=== PATIENT | female | born 1975 | race Two or more races ===

== ENCOUNTER → 2016-06-14 | Outpatient (CLI) | payer BC | END | disposition home or self-care (01) | LOC: LAB 12:46 | PROVIDERS: ATTEND Internal Medicine | DX: R30.0 Dysuria (principal) | CPT/HCPCS: 87086 ==

== ENCOUNTER → 2016-10-13 | Outpatient (CLI) | payer BC ==
[2016-10-13 10:15] LABS: Albumin 3.8 g/dL (3.4-5.0); BUN/Creatinine Ratio 15.9; Bilirubin, Total 0.5 mg/dL (0.2-1.0); Calcium 8.6 mg/dL (8.5-10.1); Potassium 3.8 mmol/L (3.5-5.1); Total Protein 8.1 g/dL (6.4-8.2)
[2016-10-13 10:22] LABS: Basophils # (auto) 0 uL; Basophils % (auto) 0.5 % (0.0-2.0); Eosinophils # (auto) 0.3 uL; Eosinophils % (auto) 2.7 % (0.0-7.0); Hematocrit 43.2 % (36.0-46.0); Hemoglobin 14.8 g/dL (12.2-16.2); Lymphocytes # (auto) 2.7 uL; Lymphocytes % (auto) 27.3 % (10.0-50.0); Mean Corpuscular Hgb Conc. 34.2 g/dL (32.0-36.0); Mean Corpuscular Volume 79.1 fL (80.0-100.0); Mean Platelet Volume 9.3 fL (7.4-10.4); Monocytes # (auto) 0.6 uL; Monocytes % (auto) 6.1 % (0.0-12.0); Neutrophils # (auto) 6.2 uL; Neutrophils % (auto) 63.4 % (37.0-80.0); Platelet Count (auto) 401 10^3/uL (140-450); Red Cell Distribution Width 14.5 % (11.6-16.0); White Blood Cell 9.8 10^3/uL (4.4-10.8)
== END | disposition home or self-care (01) ==
LOC: LAB 08:50
PROVIDERS: ATTEND Internal Medicine
DX: N92.0 Excessive and frequent menstruation with regular cycle (principal); Z68.30 Body mass index [BMI] 30.0-30.9, adult
CPT/HCPCS: 36415; 80053; 80061; 83001; 83002; 83036; 84439; 84443; 85025; 85652

== ENCOUNTER → 2016-12-28 | Outpatient (CLI) | payer BC ==
[2016-12-28 10:36] LABS: Basophils # (auto) 0.1 uL; Basophils % (auto) 0.7 % (0.0-2.0); CONDITION Y; DEFINITIVE SEE PRINTOUT; Eosinophils # (auto) 0.3 uL; Eosinophils % (auto) 2.5 % (0.0-7.0); Hematocrit 41.7 % (36.0-46.0); Lymphocytes # (auto) 2.6 uL; Lymphocytes % (auto) 24.1 % (10.0-50.0); Mean Corpuscular Hemoglobin 26.8 pg (28.0-32.0); Mean Corpuscular Hgb Conc. 33.5 g/dL (32.0-36.0); Mean Corpuscular Volume 79.9 fL (80.0-100.0); Mean Platelet Volume 9.1 fL (7.4-10.4); Monocytes # (auto) 0.5 uL; Monocytes % (auto) 4.8 % (0.0-12.0); Neutrophils # (auto) 7.4 uL; Neutrophils % (auto) 67.9 % (37.0-80.0); Platelet Count (auto) 428 10^3/uL (140-450); Red Cell Distribution Width 13.7 % (11.6-16.0)
[2016-12-28 10:46] LABS: BUN/Creatinine Ratio 13.4; Calcium 8.4 mg/dL (8.5-10.1); Potassium 4.1 mmol/L (3.5-5.1)
== END | disposition home or self-care (01) ==
LOC: LAB 07:56
PROVIDERS: ATTEND Internal Medicine
DX: Z00.01 Encounter for general adult medical examination with abnormal findings (principal); R79.89 Other specified abnormal findings of blood chemistry
CPT/HCPCS: 36415; 80048; 85025

== ENCOUNTER → 2017-04-03 | Outpatient (CLI) | payer BC ==
[2017-04-03 15:29] LABS: Basophils # (auto) 0.1 uL; Basophils % (auto) 0.8 % (0.0-2.0); Eosinophils # (auto) 0.3 uL; Hemoglobin 12.6 g/dL (12.2-16.2); Lymphocytes # (auto) 2.8 uL; Lymphocytes % (auto) 23.5 % (10.0-50.0); Monocytes # (auto) 0.5 uL; Monocytes % (auto) 4.5 % (0.0-12.0); White Blood Cell 11.7 10^3/uL (4.4-10.8)
[2017-04-03 15:31] LABS: Eosinophils % (auto) 2.7 % (0.0-7.0); Hematocrit 37.8 % (36.0-46.0); Mean Corpuscular Hemoglobin 26.8 pg (28.0-32.0); Mean Corpuscular Hgb Conc. 33.5 g/dL (32.0-36.0); Neutrophils % (auto) 68.5 % (37.0-80.0); Nucleated Red Blood Cells % 0.1 %; Platelet Count (auto) 386 10^3/uL (140-450); Red Blood Cells 4.72 10^6/uL (4.0-5.20); Red Cell Distribution Width 14.6 % (11.8-14.3)
[2017-04-03 16:21] LABS: Albumin 3.5 g/dL (3.4-5.0); BUN/Creatinine Ratio 12.3; Bilirubin, Total 0.2 mg/dL (0.2-1.0); Calcium 8.4 mg/dL (8.5-10.1); Potassium 3.5 mmol/L (3.5-5.1); Total Protein 7.6 g/dL (6.4-8.2)
[2017-04-03 16:31] LABS: Free T4 (Free Thyroxine) 0.96 ng/dL (0.89-1.76); Leuteinizing Hormone 2.7 IU/L
[2017-04-03 16:32] LABS: Follicle Stimulating Hormone 2.26 IU/L (SEE BELOW)
== END | disposition home or self-care (01) ==
LOC: LAB 08:01
PROVIDERS: ATTEND Obstetrics & Gynecology
DX: N93.9 Abnormal uterine and vaginal bleeding, unspecified (principal); R21 Rash and other nonspecific skin eruption; R51 Headache; Z79.899 Other long term (current) drug therapy
CPT/HCPCS: 36415; 80053; 82670; 83001; 83002; 84403; 84439; 84443; 85025

== ENCOUNTER 2017-04-28 07:15 | Emergency (ER) | payer BC ==
[~2017-04-28] VITALS: Ht 165.1 cm; Wt 108.9 kg
[2017-04-28 09:00] LABS: Basophils # (auto) 0 uL; Eosinophils # (auto) 0.2 uL; Lymphocytes # (auto) 1.9 uL; Monocytes # (auto) 0.4 uL; Neutrophils % (auto) 73.1 % (37.0-80.0); Platelet Count (auto) 416 10^3/uL (140-450); White Blood Cell 9.5 10^3/uL (4.4-10.8)
[2017-04-28 09:02] LABS: Basophils % (auto) 0.5 % (0.0-2.0); Eosinophils % (auto) 2.2 % (0.0-7.0); Hematocrit 39.4 % (36.0-46.0); Mean Corpuscular Hemoglobin 26.7 pg (28.0-32.0); Mean Corpuscular Hgb Conc. 33.2 g/dL (32.0-36.0); Mean Corpuscular Volume 80.6 fL (80.0-100.0); Mean Platelet Volume 8.3 fL (6.9-10.8); Monocytes % (auto) 4.2 % (0.0-12.0)
[2017-04-28 09:18] LABS: Albumin 3.3 g/dL (3.4-5.0); BUN/Creatinine Ratio 8.2; Calcium 8.2 mg/dL (8.5-10.1); Potassium 3.7 mmol/L (3.5-5.1)
[2017-04-28 09:21] LABS: Bilirubin, Total 0.6 mg/dL (0.2-1.0); Total Protein 7.5 g/dL (6.4-8.2)
[2017-04-28] MEDS ORDERED: SODIUM CHLORIDE 0.9% 1,000 ML IVB ONE (09:26)
[2017-04-28] MEDS ORDERED: METOCLOPRAMIDE HCL 5MG/ml INJ 2ml VIAL IV ONE (09:30)
[2017-04-28] MEDS ORDERED: NALBUPHINE HCL 10 MG/1ml INJECTION IV ONE (09:30)
[2017-04-28 09:57] LABS: Magnesium 2.4 mg/dL (1.6-2.6)
[2017-04-28 12:43] LABS: Urine Bilirubin Negative (Negative); Urine Blood 2+ /uL (Negative); Urine Color Yellow (Yellow); Urine Glucose Normal (Normal); Urine Granular Cast FEW /lpf (0); Urine Ketone Negative (Negative); Urine Mucus FEW (None Seen); Urine Nitrite Negative (Negative); Urine RBC 4 /hpf (0 - 4); Urine Squamous Epithelial Cell MOD /hpf (<5); Urine pH 6.5 (5.0-8.0)
[2017-04-28 13:12] VITALS: BP 121/84
[2017-04-28] MEDS ORDERED: cefTRIAXone 1GM/10ml IVPUSH 10 ML IV ONE (14:00)
[2017-04-28] MEDS ORDERED: PANTOPRAZOLE 40 MG TAB PO ONE (14:45)
== END 2017-04-28 15:18 | disposition home or self-care (01) ==
LOC: ER 07:15
DX: K21.9 Gastro-esophageal reflux disease without esophagitis (principal); K52.9 Noninfective gastroenteritis and colitis, unspecified; E66.9 Obesity, unspecified; N39.0 Urinary tract infection, site not specified; E46 Unspecified protein-calorie malnutrition; Z68.39 Body mass index [BMI] 39.0-39.9, adult; Z90.49 Acquired absence of other specified parts of digestive tract; Z88.1 Allergy status to other antibiotic agents; Z88.0 Allergy status to penicillin; Z88.2 Allergy status to sulfonamides; Z88.6 Allergy status to analgesic agent; Z88.8 Allergy status to other drugs, medicaments and biological substances
CPT/HCPCS: 36415; 71020; 74176; 80053; 81001; 83690; 83735; 84443; 84702; 85025; 93005; 96365; 96375; 99285; J2300; J2765

== ENCOUNTER 2017-07-20 05:59 | Emergency (ER) | payer BC ==
[~2017-07-20] VITALS: Ht 165.1 cm; Wt 108.9 kg
[2017-07-20] MEDS ORDERED: KETOROLAC TROMETH 30 MG/ML 1ML VIAL IV ONE (06:30)
[2017-07-20] MEDS ORDERED: PANTOPRAZOLE 40 MG/10 ML VIAL IV ONE (06:30)
[2017-07-20] MEDS ORDERED: ONDANSETRON HCL 4 MG/2 ML VIAL IV ONE (06:30)
[2017-07-20 07:03] LABS: Basophils # (auto) 0.1 uL; Eosinophils # (auto) 0.3 uL; Monocytes # (auto) 0.7 uL; Nucleated Red Blood Cells % 0.2 %
[2017-07-20 07:05] LABS: Basophils % (auto) 0.8 % (0.0-2.0); Eosinophils % (auto) 3.1 % (0.0-7.0); Hemoglobin 13.2 g/dL (12.2-16.2); Lymphocytes % (auto) 20.9 % (10.0-50.0); Mean Corpuscular Hemoglobin 25.1 pg (28.0-32.0); Mean Corpuscular Hgb Conc. 32.9 g/dL (32.0-36.0); Mean Corpuscular Volume 76.2 fL (80.0-100.0); Monocytes % (auto) 7.3 % (0.0-12.0); Neutrophils # (auto) 6.4 uL; Neutrophils % (auto) 67.9 % (37.0-80.0); Platelet Count (auto) 409 10^3/uL (140-450); Red Blood Cells 5.25 10^6/uL (4.0-5.20); Red Cell Distribution Width 14.3 % (11.8-14.3); White Blood Cell 9.4 10^3/uL (4.4-10.8)
[2017-07-20 07:26] LABS: INR 0.98 (0.9-1.15); Partial Thromboplastin Time 27.8 sec (22.64-33.71); Prothrombin Time 10.7 sec (9.37-12.3)
[2017-07-20 07:30] LABS: Alanine Aminotransferase 17 U/L (13-56); Albumin 3.4 g/dL (3.4-5.0); Anion Gap 4 (5-15); Aspartate Aminotransferase 14 U/L (15-37); BUN/Creatinine Ratio 12.7; Blood Urea Nitrogen 10 mg/dL (7-18); Calcium 8.3 mg/dL (8.5-10.1); Carbon Dioxide 27 mmol/L (21-32); Chloride 105 mmol/L (98-107); GFR African American 102 mL/min; GFR Non-African American 84 mL/min; Glucose 107 mg/dL (74-106); Potassium 3.9 mmol/L (3.5-5.1); Sodium 136 mmol/L (136-145)
[2017-07-20 07:35] LABS: Alkaline Phosphatase 98 U/L (45-117); Bilirubin, Total 0.3 mg/dL (0.2-1.0); Total Protein 7.6 g/dL (6.4-8.2)
[2017-07-20 08:02] VITALS: BP 132/98
== END 2017-07-20 08:00 | disposition home or self-care (01) ==
LOC: ER 05:59
DX: R07.89 Other chest pain (principal); K21.9 Gastro-esophageal reflux disease without esophagitis; G43.909 Migraine, unspecified, not intractable, without status migrainosus; Z90.49 Acquired absence of other specified parts of digestive tract; Z88.2 Allergy status to sulfonamides; Z88.0 Allergy status to penicillin; Z88.1 Allergy status to other antibiotic agents; Z88.8 Allergy status to other drugs, medicaments and biological substances
CPT/HCPCS: 36415; 71045; 80053; 83735; 83880; 84443; 84484; 85025; 85610; 85730; 93005; 94761; 96374; 96375; 99285; C9113; J1885; J2405

== ENCOUNTER → 2017-08-03 | Outpatient (CLI) | payer BC | END | disposition home or self-care (01) | LOC: LAB 11:13 | PROVIDERS: ATTEND Internal Medicine | DX: Z20.2 Contact with and (suspected) exposure to infections with a predominantly sexual mode of transmission (principal) | CPT/HCPCS: 36415; 86703; 86803 ==

== ENCOUNTER → 2017-09-10 | Outpatient (CLI) | payer BC ==
[2017-09-10 09:12] LABS: Basophils # (auto) 0.1 uL; Eosinophils # (auto) 0.2 uL; Eosinophils % (auto) 2.7 % (0.0-7.0); Mean Corpuscular Hemoglobin 24.4 pg (28.0-32.0); Monocytes # (auto) 0.5 uL; Neutrophils # (auto) 4.6 uL
[2017-09-10 09:15] LABS: Basophils % (auto) 1.4 % (0.0-2.0); Hematocrit 38.6 % (36.0-46.0); Hemoglobin 12.5 g/dL (12.2-16.2); Lymphocytes # (auto) 2.1 uL; Mean Corpuscular Hgb Conc. 32.5 g/dL (32.0-36.0); Mean Corpuscular Volume 75.2 fL (80.0-100.0); Monocytes % (auto) 6.6 % (0.0-12.0); Neutrophils % (auto) 61.3 % (37.0-80.0); Platelet Count (auto) 448 10^3/uL (140-450); Red Blood Cells 5.13 10^6/uL (4.0-5.20); Red Cell Distribution Width 15.9 % (11.8-14.3); White Blood Cell 7.4 10^3/uL (4.4-10.8)
[2017-09-10 09:20] LABS: INR 1.02 (0.9-1.15); Partial Thromboplastin Time 27.5 sec (22.64-33.71); Prothrombin Time 11.1 sec (9.37-12.3)
[2017-09-10 09:21] LABS: Cholesterol 137 mg/dL (< 200); HDL Cholesterol 44 mg/dL (40-59); LDL Cholesterol 80 mg/dL (< 100); Triglycerides 160 mg/dL (< 150)
== END | disposition home or self-care (01) ==
LOC: LAB 08:43
PROVIDERS: ATTEND Internal Medicine
DX: Z01.812 Encounter for preprocedural laboratory examination (principal); R79.89 Other specified abnormal findings of blood chemistry; Z79.899 Other long term (current) drug therapy
CPT/HCPCS: 36415; 80061; 85025; 85610; 85730

== ENCOUNTER → 2017-09-17 | Outpatient (CLI) | payer BC ==
[~2017-09-17] MED LIST: LIDOCAINE 2% (LOCAL ANESTH.) PF 5ml SDV ONE
== END | disposition home or self-care (01) ==
LOC: US 09-12 09:20
PROVIDERS: ATTEND Internal Medicine
DX: N60.32 Fibrosclerosis of left breast (principal); Z88.5 Allergy status to narcotic agent; Z88.6 Allergy status to analgesic agent; Z88.1 Allergy status to other antibiotic agents; Z88.2 Allergy status to sulfonamides
CPT/HCPCS: 10030; 19083; 76942

== ENCOUNTER → 2017-10-29 | Outpatient (CLI) | payer BC | END | disposition home or self-care (01) | LOC: XY 18:33 | PROVIDERS: ATTEND Internal Medicine | DX: J98.11 Atelectasis (principal); M79.1 Myalgia | CPT/HCPCS: 71046 ==

== ENCOUNTER → 2017-11-19 | Outpatient (CLI) | payer BC ==
[2017-11-19 16:42] LABS: Basophils # (auto) 0.1 uL; Eosinophils # (auto) 0.3 uL; Hemoglobin 12.8 g/dL (12.2-16.2); Monocytes # (auto) 0.5 uL
[2017-11-19 16:44] LABS: Basophils % (auto) 0.6 % (0.0-2.0); Hematocrit 39.3 % (36.0-46.0); Lymphocytes # (auto) 1.8 uL; Lymphocytes % (auto) 17.2 % (10.0-50.0); Mean Corpuscular Hemoglobin 23.8 pg (28.0-32.0); Mean Corpuscular Hgb Conc. 32.6 g/dL (32.0-36.0); Mean Corpuscular Volume 72.8 fL (80.0-100.0); Monocytes % (auto) 4.8 % (0.0-12.0); Neutrophils # (auto) 7.7 uL; Neutrophils % (auto) 74.4 % (37.0-80.0); Nucleated Red Blood Cells % 0.1 %; Platelet Count (auto) 555 10^3/uL (140-450); Red Cell Distribution Width 15.1 % (11.8-14.3); White Blood Cell 10.4 10^3/uL (4.4-10.8)
[2017-11-19 17:04] LABS: Albumin 3.6 g/dL (3.4-5.0); BUN/Creatinine Ratio 9.7; Bilirubin, Total 0.5 mg/dL (0.2-1.0); Calcium 8.6 mg/dL (8.5-10.1); Potassium 3.7 mmol/L (3.5-5.1); Total Protein 8.8 g/dL (6.4-8.2)
[2017-11-20 13:32] LABS: Urine Bacteria NONE SEEN /hpf (None Seen); Urine Blood Negative /uL (Negative); Urine Mucus FEW (None Seen); Urine Specific Gravity 1.026 (1.001-1.035); Urine WBC 4 /hpf (0 - 5)
== END | disposition home or self-care (01) ==
LOC: LAB 16:02
PROVIDERS: ATTEND Internal Medicine
DX: M25.50 Pain in unspecified joint (principal); R50.9 Fever, unspecified
CPT/HCPCS: 36415; 80053; 81001; 84439; 84443; 85025; 85652; 86225; 86235; 86308; 87040; 87070

== ENCOUNTER → 2017-11-26 | Outpatient (CLI) | payer BC | END | disposition home or self-care (01) | LOC: LAB 14:43 | PROVIDERS: ATTEND Internal Medicine | DX: D47.3 Essential (hemorrhagic) thrombocythemia (principal); K21.9 Gastro-esophageal reflux disease without esophagitis; Z79.899 Other long term (current) drug therapy | CPT/HCPCS: 36415; 83540 ==

== ENCOUNTER 2018-02-13 06:00 | Inpatient (IN) | payer BC ==
[2018-02-11 12:11] LABS: Basophils # (auto) 0.1 uL; Basophils % (auto) 0.8 % (0.0-2.0); Hematocrit 38.9 % (36.0-46.0); Mean Corpuscular Hemoglobin 23.2 pg (28.0-32.0); Monocytes # (auto) 0.5 uL; Monocytes % (auto) 5.3 % (0.0-12.0); Neutrophils % (auto) 68.9 % (37.0-80.0)
[2018-02-11 12:12] LABS: Eosinophils # (auto) 0.2 uL; Eosinophils % (auto) 2.5 % (0.0-7.0); Hemoglobin 12.3 g/dL (12.2-16.2); Lymphocytes % (auto) 22.5 % (10.0-50.0); Mean Corpuscular Hgb Conc. 31.8 g/dL (32.0-36.0); Mean Corpuscular Volume 72.9 fL (80.0-100.0); Neutrophils # (auto) 6.3 uL; Nucleated Red Blood Cells % 0.2 %; Platelet Count (auto) 492 10^3/uL (140-450); Red Blood Cells 5.33 10^6/uL (4.0-5.20); Red Cell Distribution Width 16.5 % (11.8-14.3); White Blood Cell 9.1 10^3/uL (4.4-10.8)
[2018-02-11 12:31] LABS: Albumin 3.4 g/dL (3.4-5.0); BUN/Creatinine Ratio 16.5; Bilirubin, Total 0.3 mg/dL (0.2-1.0); Calcium 8.6 mg/dL (8.5-10.1); Potassium 3.9 mmol/L (3.5-5.1); Total Protein 8.1 g/dL (6.4-8.2)
[2018-02-11 12:42] LABS: INR 0.98 (0.9-1.15); Partial Thromboplastin Time 28.4 sec (23.78-33.04); Prothrombin Time 10.5 sec (9.27-12.13)
[~2018-02-13] VITALS: Ht 165.1 cm; Wt 106.8 kg
[~2018-02-13 06:00] MED LIST changes: -LIDOCAINE 2% (LOCAL ANESTH.) PF 5ml SDV ONE; +OMEP20TA PO
[2018-02-13] MEDS ORDERED: LIDOCAINE 1% HCL (LOCAL ANESTH.) INJ 20ML MDV ONE (07:15)
[2018-02-13] MEDS ORDERED: SUCCINYLCHOLINE CHLORIDE 20 MG/ML 10ML VIAL IV ONE (07:15)
[2018-02-13] MEDS ORDERED: ETOMIDATE (2MG/ML) 20ML VIAL IV ONE (07:19)
[2018-02-13] MEDS ORDERED: MIDAZOLAM HCL 1MG/1ML-2 ML VIAL ONE (07:19)
[2018-02-13] MEDS ORDERED: METOCLOPRAMIDE HCL 5MG/ml INJ 2ml VIAL ONE (07:19)
[2018-02-13] MEDS ORDERED: ROCURONIUM 10MG/ML 10ML VIAL IV ONE (07:19)
[2018-02-13] MEDS ORDERED: fentaNYL CITRATE 100 MCG/2 ML VL ONE (07:40)
[2018-02-13] MEDS ORDERED: DEXAMETHASONE SOD PHOS 10MG/1ML VIAL INJ ONE (07:41)
[2018-02-13] MEDS ORDERED: ESMOLOL HCL 10 ML IV ONE (07:51)
[2018-02-13] MEDS ORDERED: hydrALAZINE HCL 20 MG/ML VL IV PRN (08:00)
[2018-02-13] MEDS ORDERED: HYDROmorphone HCL 2 MG/ML VL IV PRN ×2 (08:00→13:30)
[2018-02-13] MEDS ORDERED: ONDANSETRON HCL 4 MG/2 ML VIAL IV ONE (08:00)
[2018-02-13] MEDS ORDERED: NALOXONE HCL 0.4 MG/ML VIAL IV PRN (08:00)
[2018-02-13] MEDS ORDERED: hydrALAZINE HCL 20 MG/ML VL ONE (08:08)
[2018-02-13] MEDS ORDERED: NEOSTIGMINE 1 MG/ML INJ (10mg/10ML VIAL) ONE (08:32)
[2018-02-13] MEDS ORDERED: GLYCOPYRROLATE 0.2 MG/ML 1ML VIAL ONE (08:32)
[2018-02-13] MEDS: HYDROmorphone HCL 2 MG/ML VL IV PRN ×6 (08:50→23:16)
[2018-02-13 13:00] VITALS: BP 125/54
[2018-02-13] MEDS ORDERED: ONDANSETRON HCL 4 MG/2 ML VIAL IV PRN (14:45)
[2018-02-13] MEDS ORDERED: HYDROcodone-ACET 5/325MG TAB PO PRN (14:45)
[2018-02-13] MEDS ORDERED: MORPHINE SULF INJ 2 MG/ML SYRINGE 1ML IV PRN (14:45)
[2018-02-13] MEDS ORDERED: NITROGLYCERIN 0.4 MG SL TAB SL PRN (14:45)
[2018-02-13] MEDS: SODIUM CHLORIDE 0.9% 1,000 ML IV SCH (15:32)
[2018-02-13 16:49] VITALS: BP 117/71
[2018-02-13] MEDS ORDERED: METOCLOPRAMIDE HCL 5MG/ml INJ 2ml VIAL IV PRN (18:00)
[2018-02-13 22:24] VITALS: BP 138/75
[2018-02-13] MEDS ORDERED: MAGNESIUM SULFATE 1GM/100ML 100 ML IV SCH (23:00)
[2018-02-13] MEDS: MAGNESIUM SULFATE 1GM/100ML 100 ML IV SCH (23:18)
[2018-02-14] MEDS: MAGNESIUM SULFATE 1GM/100ML 100 ML IV SCH ×3 (00:33→01:35)
[2018-02-14] MEDS: IBUPROFEN 100MG/5ML ORAL SUSP 100 MG/5 ML UD PO PRN ×2 (03:32→09:30)
[2018-02-14 03:36] VITALS: BP 132/70
[2018-02-14 04:36] VITALS: BP 105/72
[2018-02-14] MEDS: SODIUM CHLORIDE 0.9% 1,000 ML IV SCH (05:06)
[2018-02-14 06:47] LABS: Basophils # (auto) 0 uL; Eosinophils # (auto) 0 uL; Hemoglobin 11.3 g/dL (12.2-16.2); Platelet Count (auto) 514 10^3/uL (140-450); Red Cell Distribution Width 16.4 % (11.8-14.3)
[2018-02-14 06:49] LABS: Basophils % (auto) 0.1 % (0.0-2.0); Eosinophils % (auto) 0.1 % (0.0-7.0); Hematocrit 35.8 % (36.0-46.0); Lymphocytes # (auto) 1.7 uL; Lymphocytes % (auto) 10.5 % (10.0-50.0); Mean Corpuscular Hgb Conc. 31.5 g/dL (32.0-36.0); Mean Corpuscular Volume 72.9 fL (80.0-100.0); Monocytes % (auto) 6.2 % (0.0-12.0); Neutrophils # (auto) 13.5 uL; Neutrophils % (auto) 83.1 % (37.0-80.0); Nucleated Red Blood Cells % 0.1 %; White Blood Cell 16.2 10^3/uL (4.4-10.8)
[2018-02-14 07:05] LABS: Albumin 3.3 g/dL (3.4-5.0); BUN/Creatinine Ratio 18.9; Potassium 3.7 mmol/L (3.5-5.1)
[2018-02-14 07:08] LABS: Bilirubin, Total 0.5 mg/dL (0.2-1.0); Total Protein 7.5 g/dL (6.4-8.2)
[2018-02-14 08:00] VITALS: BP 145/90
[2018-02-14] MEDS: HYDROmorphone HCL 2 MG/ML VL IV PRN (09:07)
[2018-02-14] MEDS ORDERED: PANTOPRAZOLE 40 MG/10 ML VIAL IV SCH (10:00)
== END 2018-02-14 12:32 | disposition home or self-care (01) | DRG 134 ==
LOC: SUR 06:00 → CENTRAL 06:01 → TELE-CENTR 14:47
PROVIDERS: ADMIT Otolaryngology; ATTEND Internal Medicine
PROC: 0CTPXZZ Resection of Tonsils, External Approach (ICD-10-PCS; principal; 2018-02-13 07:27)
DX: J35.01 Chronic tonsillitis (principal); G89.29 Other chronic pain; I49.8 Other specified cardiac arrhythmias; K21.9 Gastro-esophageal reflux disease without esophagitis; G43.909 Migraine, unspecified, not intractable, without status migrainosus; E66.9 Obesity, unspecified; Z68.39 Body mass index [BMI] 39.0-39.9, adult; Z79.899 Other long term (current) drug therapy
CPT/HCPCS: 36415; 80053; 84702; 85025; 85610; 85730; C9113; J0330; J1100; J2001; J2250; J2405

== ENCOUNTER 2018-02-14 22:29 | Emergency (ER) | payer BC ==
[~2018-02-14] VITALS: Ht 165.1 cm; Wt 104.3 kg
[2018-02-14] MEDS ORDERED: fentaNYL CITRATE 100 MCG/2 ML VL IV ONE (23:30)
[2018-02-14] MEDS ORDERED: ONDANSETRON HCL 4 MG/2 ML VIAL IV ONE (23:30)
[2018-02-14] MEDS ORDERED: SODIUM CHLORIDE 0.9% 1,000 ML IV ONE (23:30)
[2018-02-14 23:44] LABS: Basophils # (auto) 0 uL; Basophils % (auto) 0.4 % (0.0-2.0); Eosinophils # (auto) 0.1 uL; Eosinophils % (auto) 0.8 % (0.0-7.0); Hematocrit 34.1 % (36.0-46.0); Hemoglobin 10.9 g/dL (12.2-16.2); Lymphocytes # (auto) 3.1 uL; Lymphocytes % (auto) 26.5 % (10.0-50.0); Mean Corpuscular Hgb Conc. 31.9 g/dL (32.0-36.0); Mean Corpuscular Volume 72.2 fL (80.0-100.0); Monocytes # (auto) 0.7 uL; Monocytes % (auto) 5.9 % (0.0-12.0); Neutrophils # (auto) 7.7 uL; Neutrophils % (auto) 66.4 % (37.0-80.0); Nucleated Red Blood Cells % 0.1 %; Platelet Count (auto) 460 10^3/uL (140-450); Red Blood Cells 4.72 10^6/uL (4.0-5.20); Red Cell Distribution Width 16.1 % (11.8-14.3); White Blood Cell 11.6 10^3/uL (4.4-10.8)
[2018-02-15 00:04] LABS: Albumin 3.3 g/dL (3.4-5.0); BUN/Creatinine Ratio 18.8; Calcium 7.9 mg/dL (8.5-10.1); Potassium 3.5 mmol/L (3.5-5.1)
[2018-02-15 00:06] LABS: Bilirubin, Total 0.6 mg/dL (0.2-1.0); Total Protein 7.3 g/dL (6.4-8.2)
[2018-02-15] MEDS ORDERED: IBUPROFEN 100MG/5ML ORAL SUSP 100 MG/5 ML UD PO ONE (01:00)
[2018-02-15] MEDS ORDERED: cefTRIAXone 1GM/10ml IVPUSH 10 ML IV ONE (02:30)
[2018-02-15] MEDS ORDERED: LEVOFLOXACIN 750MG 150 ML IV ONE (02:30)
[2018-02-15 04:29] VITALS: BP 123/98
== END 2018-02-15 04:35 | disposition home or self-care (01) ==
LOC: ER 22:40
DX: M79.602 Pain in left arm (principal); M79.601 Pain in right arm; K21.9 Gastro-esophageal reflux disease without esophagitis; Z90.49 Acquired absence of other specified parts of digestive tract; Z90.89 Acquired absence of other organs; Z88.2 Allergy status to sulfonamides; Z88.0 Allergy status to penicillin; Z88.6 Allergy status to analgesic agent
CPT/HCPCS: 36415; 80053; 83605; 85025; 87040; 96365; 96375; 99284; J0696; J1956; J2405; J3010; J7030

== ENCOUNTER 2018-02-19 14:56 | Emergency (ER) | payer BC ==
[~2018-02-19] VITALS: Ht 165.1 cm; Wt 101.2 kg
[2018-02-19 15:32] VITALS: BP 150/83
[2018-02-19] MEDS ORDERED: SODIUM CHLORIDE 0.9% 2,000 ML IV ONE (15:50)
[2018-02-19] MEDS ORDERED: LIDOCAINE VISCOUS 2% 15ML UD PO ONE (16:00)
[2018-02-19] MEDS ORDERED: NALBUPHINE HCL 10 MG/1ml INJECTION IV ONE (16:00)
[2018-02-19] MEDS ORDERED: methylPREDNISolone SOD SUCC 125 MG/2 ML VL IV ONE (16:00)
[2018-02-19] MEDS ORDERED: LIDOCAINE VISCOUS 2% 15ML UD ONE (17:58)
[2018-02-19] MEDS ORDERED: Acetam/CODEINE 120mg/12mg per 5mL UD PO ONE (18:45)
== END 2018-02-19 19:29 | disposition home or self-care (01) ==
LOC: ER 15:01
DX: R07.0 Pain in throat (principal); K21.9 Gastro-esophageal reflux disease without esophagitis; Z90.89 Acquired absence of other organs; Z88.2 Allergy status to sulfonamides; Z88.0 Allergy status to penicillin; Z88.1 Allergy status to other antibiotic agents; Z88.6 Allergy status to analgesic agent
CPT/HCPCS: 96374; 96375; 99284; J2300; J2930

== ENCOUNTER 2018-03-21 16:23 | Emergency (ER) | payer BC ==
[~2018-03-21] VITALS: Ht 165.1 cm; Wt 100.2 kg
[2018-03-21] MEDS ORDERED: LIDOCAINE VISCOUS 2% 15ML UD PO ONE (17:00)
[2018-03-21] MEDS ORDERED: ALUM & MAG HYDROX-SIMETH LIQ(MAALOX) 30 ML PO ONE (17:00)
[2018-03-21] MEDS ORDERED: DONNATAL 5ml ORAL Elix (BELLADONNA ALK-PHENOBARB) PO ONE (17:00)
[2018-03-21] MEDS ORDERED: PROMETHAZINE HCL 25 MG/ML 1ML IV ONE (17:15)
[2018-03-21 18:02] LABS: Basophils # (auto) 0.1 uL; Eosinophils # (auto) 0.2 uL; Lymphocytes # (auto) 2.1 uL; Mean Corpuscular Volume 71.2 fL (80.0-100.0); Red Cell Distribution Width 16.2 % (11.8-14.3)
[2018-03-21 18:04] LABS: Basophils % (auto) 0.7 % (0.0-2.0); Eosinophils % (auto) 1.7 % (0.0-7.0); Hematocrit 35.5 % (36.0-46.0); Hemoglobin 11.2 g/dL (12.2-16.2); Lymphocytes % (auto) 19.2 % (10.0-50.0); Mean Corpuscular Hemoglobin 22.4 pg (28.0-32.0); Mean Corpuscular Hgb Conc. 31.5 g/dL (32.0-36.0); Monocytes # (auto) 0.7 uL; Neutrophils % (auto) 72.4 % (37.0-80.0); Platelet Count (auto) 424 10^3/uL (140-450); Red Blood Cells 4.98 10^6/uL (4.0-5.20)
[2018-03-21 18:14] LABS: INR 1.02 (0.9-1.15); Prothrombin Time 10.9 sec (9.27-12.13)
[2018-03-21] MEDS ORDERED: PIPERACILLIN-TAZOB 3.375GM 100 ML IV ONE (18:15)
[2018-03-21 18:16] LABS: Alanine Aminotransferase 18 U/L (13-56); Albumin 3.5 g/dL (3.4-5.0); Anion Gap 8 (5-15); Aspartate Aminotransferase 7 U/L (15-37); BUN/Creatinine Ratio 13.2; Blood Urea Nitrogen 10 mg/dL (7-18); Calcium 8.1 mg/dL (8.5-10.1); Carbon Dioxide 24 mmol/L (21-32); Chloride 109 mmol/L (98-107); GFR African American 106 mL/min; GFR Non-African American 88 mL/min; Glucose 94 mg/dL (74-106); Lipase 87 U/L (73-393); Potassium 3.6 mmol/L (3.5-5.1); Sodium 141 mmol/L (136-145)
[2018-03-21 18:21] LABS: Alkaline Phosphatase 110 U/L (45-117); Bilirubin, Total 0.3 mg/dL (0.2-1.0); Total Protein 7.4 g/dL (6.4-8.2)
[2018-03-21] MEDS ORDERED: ONDANSETRON HCL 4 MG/2 ML VIAL IV ONE (19:45)
[2018-03-21] MEDS ORDERED: methylPREDNISolone SOD SUCC 125 MG/2 ML VL IV ONE (19:45)
[2018-03-21] MEDS ORDERED: SODIUM CHLORIDE 0.9% 1,000 ML IV ONE (19:45)
[2018-03-21] MEDS ORDERED: FAMOTIDINE (10MG/ML) 2ML VL IV ONE (19:45)
[2018-03-21 20:03] LABS: Urine Bacteria NONE SEEN /hpf (None Seen); Urine Blood Negative /uL (Negative); Urine Specific Gravity 1.018 (1.001-1.035); Urine WBC 1 /hpf (0 - 5)
[2018-03-21 20:48] VITALS: BP 142/69
== END 2018-03-21 21:07 | disposition home or self-care (01) ==
LOC: ER 16:36
DX: K29.70 Gastritis, unspecified, without bleeding (principal); Z90.49 Acquired absence of other specified parts of digestive tract; Z90.89 Acquired absence of other organs; Z88.0 Allergy status to penicillin; Z88.2 Allergy status to sulfonamides; Z88.6 Allergy status to analgesic agent
CPT/HCPCS: 36415; 74176; 80053; 81001; 81025; 83690; 84484; 85025; 85610; 85730; 86677; 96365; 96366; 96375; 99285; J2405; J2543; J2550; J2930; J3490; J7030

== ENCOUNTER → 2018-04-16 | Outpatient (CLI) | payer BC | END | disposition home or self-care (01) | LOC: LAB 13:58 | PROVIDERS: ATTEND Obstetrics & Gynecology | DX: Z20.2 Contact with and (suspected) exposure to infections with a predominantly sexual mode of transmission (principal) | CPT/HCPCS: 86695; 86696 ==

== ENCOUNTER → 2018-05-27 | Outpatient (CLI) | payer BC | END | disposition home or self-care (01) | LOC: LAB 08:33 | PROVIDERS: ATTEND Obstetrics & Gynecology | DX: Z30.2 Encounter for sterilization (principal); N76.0 Acute vaginitis | CPT/HCPCS: 86592; 86703; 87070 ==

== ENCOUNTER → 2018-07-17 | Outpatient (CLI) | payer BC ==
[2018-07-17 09:24] LABS: Basophils # (auto) 0.1 uL; Basophils % (auto) 0.8 % (0.0-2.0); Monocytes # (auto) 0.4 uL; Neutrophils # (auto) 5.1 uL
[2018-07-17 09:25] LABS: Eosinophils # (auto) 0.1 uL; Eosinophils % (auto) 1.7 % (0.0-7.0); Hemoglobin 12.2 g/dL (12.2-16.2); Lymphocytes # (auto) 2.2 uL; Lymphocytes % (auto) 27.8 % (10.0-50.0); Mean Corpuscular Hgb Conc. 32.2 g/dL (32.0-36.0); Mean Corpuscular Volume 68.4 fL (80.0-100.0); Monocytes % (auto) 5.3 % (0.0-12.0); Neutrophils % (auto) 64.4 % (37.0-80.0); Nucleated Red Blood Cells % 0.1 %; Platelet Count (auto) 479 10^3/uL (140-450); Red Blood Cells 5.55 10^6/uL (4.0-5.20); Red Cell Distribution Width 16.6 % (11.8-14.3); White Blood Cell 7.9 10^3/uL (4.4-10.8)
[2018-07-17 10:00] LABS: Albumin 3.7 g/dL (3.4-5.0); Calcium 8.5 mg/dL (8.5-10.1); Potassium 3.9 mmol/L (3.5-5.1)
[2018-07-17 10:05] LABS: BUN/Creatinine Ratio 11.1
[2018-07-17 10:06] LABS: Bilirubin, Total 0.5 mg/dL (0.2-1.0); Total Protein 7.9 g/dL (6.4-8.2)
== END | disposition home or self-care (01) ==
LOC: LAB 09:00
PROVIDERS: ATTEND Internal Medicine
DX: K21.9 Gastro-esophageal reflux disease without esophagitis (principal); A53.9 Syphilis, unspecified
CPT/HCPCS: 36415; 80053; 82150; 83516; 83690; 84439; 84443; 85025; 86256

== ENCOUNTER → 2018-08-02 | Outpatient (CLI) | payer BC | END | disposition home or self-care (01) | LOC: LAB 13:56 | PROVIDERS: ATTEND Internal Medicine | DX: Z77.21 Contact with and (suspected) exposure to potentially hazardous body fluids (principal) | CPT/HCPCS: 87536 ==

== ENCOUNTER 2018-09-12 09:29 | Inpatient (IN) | payer BC ==
[~2018-09-12] VITALS: Ht 165.1 cm; Wt 112.5 kg
[2018-09-12 10:15] VITALS: BP 152/89
--- NOTE | 2018-09-12 10:15 | NUR ---
Direct Admit Note NATIVIDAD LUKE admitted to [facility] unit as a direct admit per MD order. Patient oriented to Sil Kiran, primary RN, unit, room, bed, and unit policies regarding patient care and visiting hours. Patient now on continuous telemetry monitoring, tele box #9 and telemetry reading on arrival to unit is sinsu rhythm @ 86 bpm. Patient placed on bedside oxygen, weighed by bedscale and encouraged to call if they need something. IV to left hand, 22 gauge, patent and saline locked. All questions and concerns addressed, patient verbalized understanding. MD notified of patients arrival and admit orders received.
[2018-09-12 10:40] VITALS: BP 150/75
[2018-09-12] MEDS ORDERED: diphenhdrAMINE HCL 50 MG/1 ML VL IV PRN (11:15)
[2018-09-12] MEDS ORDERED: PANTOPRAZOLE 40 MG TAB PO ONE (11:15)
[2018-09-12] MEDS ORDERED: ONDANSETRON HCL 4 MG/2 ML VIAL IV PRN (11:30)
--- NOTE | 2018-09-12 12:15 | NUR ---
ALLERGY TESTING Genia, Pharmacist and Dr Smith at bedside for allergy testing.
[2018-09-12] MEDS ORDERED: PENICILLIN G BENZ 1200000 UNITS/2 ML SYRG IM ONE (12:30)
--- NOTE | 2018-09-12 12:50 | NUR ---
Allergy testing complete. Per Dr Smith and Genia, Pharmacist, patient allergy test for PCN is negative.
[2018-09-12 12:57] LABS: Basophils # (auto) 0.1 uL; Hemoglobin 12.3 g/dL (12.2-16.2); Lymphocytes % (auto) 22.1 % (10.0-50.0); Monocytes # (auto) 0.8 uL
[2018-09-12 12:59] LABS: Basophils % (auto) 0.5 % (0.0-2.0); Eosinophils # (auto) 0.2 uL; Hematocrit 39.3 % (36.0-46.0); Lymphocytes # (auto) 2.5 uL; Mean Corpuscular Hemoglobin 21.9 pg (28.0-32.0); Mean Corpuscular Hgb Conc. 31.4 g/dL (32.0-36.0); Mean Corpuscular Volume 69.8 fL (80.0-100.0); Monocytes % (auto) 7.4 % (0.0-12.0); Neutrophils # (auto) 7.8 uL; Platelet Count (auto) 434 10^3/uL (140-450); Red Blood Cells 5.63 10^6/uL (4.0-5.20); Red Cell Distribution Width 17.5 % (11.8-14.3); White Blood Cell 11.5 10^3/uL (4.4-10.8)
[2018-09-12 13:00] VITALS: BP 152/89
[2018-09-12 13:23] LABS: Potassium 3.8 mmol/L (3.5-5.1)
[2018-09-12 13:26] LABS: Albumin 3.6 g/dL (3.4-5.0); Calcium 8.3 mg/dL (8.5-10.1)
[2018-09-12 13:31] LABS: BUN/Creatinine Ratio 14.5; Bilirubin, Total 0.3 mg/dL (0.2-1.0); Total Protein 7.5 g/dL (6.4-8.2)
[2018-09-12 17:00] VITALS: BP 151/81
[2018-09-12] MEDS: traMADol HCL 50 MG TAB PO PRN ×2 (17:11→23:38)
[2018-09-12 17:54] LABS: Urine Bacteria NONE SEEN /hpf (None Seen); Urine Blood Negative /uL (Negative); Urine Mucus FEW (None Seen); Urine Specific Gravity 1.022 (1.001-1.035); Urine WBC 6 /hpf (0 - 5)
--- NOTE | 2018-09-12 19:25 | NUR ---
OPENING NOTE Received report from day shift RN. Patient is A&O X's 4 with no s/s of distress noted. Patient reports feeling anxious and requesting a medication to help her sleep at night because she has been stressed and waking up easily. Will page hospitalist for an order. Educated patient on POC and to use call light when in need of any assistance. Patient verbalized understanding. Bed is in lowest/locked position with side rails up X's 2 and call light within reach. Will continue to monitor and round hourly/PRN.
--- NOTE | 2018-09-12 19:35 | NUR ---
Care endorsed to DAYO Munguia, night nurse.
[2018-09-12 22:00] VITALS: BP 136/70
[2018-09-13] MEDS ORDERED: TEMAZEPAM 15 MG CAP PO ONE
--- NOTE | 2018-09-13 08:00 | NUR ---
Opening Shift Note Assumed care of patient, awake and alert. No S/S of distress/SOB. Instructed on POC and to call for assist PRN, will continue to monitor for changes Q1hr and PRN.
[2018-09-13 09:47] VITALS: BP 123/81
[2018-09-13] MEDS ORDERED: PANTOPRAZOLE 40 MG TAB PO SCH (10:00)
--- NOTE | 2018-09-13 11:00 | NUR ---
Discharge instructions given as ordered. Encourage to follow up with PMD as instructed. All questions and concerns addressed. Patient verbalized understanding. Medication reconciliation form completed and copy given to patient. IV removed with catheter intact and pressure dressing applied. Patient ambulated to vehicle with all personal belongings. No distress noted at time of departure.
== END 2018-09-13 11:00 | disposition home or self-care (01) | DRG 951 ==
LOC: EAST 09:29
PROVIDERS: ADMIT Internal Medicine; ATTEND Internal Medicine
DX: Z01.82 Encounter for allergy testing (principal); Z68.41 Body mass index [BMI] 40.0-44.9, adult; A53.9 Syphilis, unspecified; E66.01 Morbid (severe) obesity due to excess calories; G43.909 Migraine, unspecified, not intractable, without status migrainosus; K21.9 Gastro-esophageal reflux disease without esophagitis; Z88.2 Allergy status to sulfonamides; Z88.8 Allergy status to other drugs, medicaments and biological substances
CPT/HCPCS: 36415; 80053; 81001; 85025; G0378; J0561

== ENCOUNTER 2018-09-22 01:56 | Emergency (ER) | payer BC ==
[~2018-09-22] VITALS: Ht 165.1 cm; Wt 108.9 kg
[2018-09-22] MEDS ORDERED: cloNIDine HCL 0.1 MG TAB PO ONE (02:15)
[2018-09-22 04:39] LABS: Basophils # (auto) 0.1 uL; Basophils % (auto) 1.2 % (0.0-2.0); Eosinophils # (auto) 0.3 uL; Eosinophils % (auto) 2.4 % (0.0-7.0); Hematocrit 34.7 % (36.0-46.0); Lymphocytes # (auto) 2.5 uL; Lymphocytes % (auto) 22.2 % (10.0-50.0); Mean Corpuscular Hemoglobin 22.1 pg (28.0-32.0); Mean Corpuscular Hgb Conc. 31.5 g/dL (32.0-36.0); Mean Corpuscular Volume 70.2 fL (80.0-100.0); Monocytes # (auto) 0.7 uL; Monocytes % (auto) 6.1 % (0.0-12.0); Neutrophils # (auto) 7.5 uL; Neutrophils % (auto) 68.1 % (37.0-80.0); Platelet Count (auto) 370 10^3/uL (140-450); Red Blood Cells 4.95 10^6/uL (4.0-5.20); Red Cell Distribution Width 17.3 % (11.8-14.3); White Blood Cell 11.1 10^3/uL (4.4-10.8)
[2018-09-22 05:46] LABS: Albumin 3.3 g/dL (3.4-5.0); Anion Gap 10 (5-15); Blood Urea Nitrogen 12 mg/dL (7-18); Calcium 8.2 mg/dL (8.5-10.1); Carbon Dioxide 21 mmol/L (21-32); Chloride 109 mmol/L (98-107); Glucose 106 mg/dL (74-106); Potassium 3.6 mmol/L (3.5-5.1); Sodium 140 mmol/L (136-145)
[2018-09-22 05:51] VITALS: BP 106/73
[2018-09-22 05:52] LABS: Alanine Aminotransferase 17 U/L (13-56); Alkaline Phosphatase 100 U/L (45-117); Aspartate Aminotransferase 10 U/L (15-37); BUN/Creatinine Ratio 16.9; Bilirubin, Total 0.3 mg/dL (0.2-1.0); GFR African American 115 mL/min; GFR Non-African American 95 mL/min; Total Protein 7.2 g/dL (6.4-8.2)
== END 2018-09-22 05:56 | disposition left against medical advice (07) ==
LOC: ER 01:56
DX: M79.602 Pain in left arm (principal); I10 Essential (primary) hypertension; Z53.21 Procedure and treatment not carried out due to patient leaving prior to being seen by health care provider
CPT/HCPCS: 36415; 71045; 80053; 84484; 85025; 93005

== ENCOUNTER → 2018-11-13 | Outpatient (CLI) | payer BC ==
[2018-11-13 09:50] LABS: Basophils # (auto) 0.1 uL; Eosinophils # (auto) 0.2 uL; White Blood Cell 8.3 10^3/uL (4.4-10.8)
[2018-11-13 09:53] LABS: Basophils % (auto) 1.1 % (0.0-2.0); Eosinophils % (auto) 2.5 % (0.0-7.0); Hematocrit 37.6 % (36.0-46.0); Lymphocytes % (auto) 24.2 % (10.0-50.0); Mean Corpuscular Hgb Conc. 31.8 g/dL (32.0-36.0); Mean Corpuscular Volume 69.1 fL (80.0-100.0); Monocytes # (auto) 0.6 uL; Monocytes % (auto) 6.7 % (0.0-12.0); Neutrophils # (auto) 5.4 uL; Neutrophils % (auto) 65.5 % (37.0-80.0); Platelet Count (auto) 410 10^3/uL (140-450); Red Blood Cells 5.44 10^6/uL (4.0-5.20); Red Cell Distribution Width 16.9 % (11.8-14.3)
== END | disposition home or self-care (01) ==
LOC: LAB 09:08
PROVIDERS: ATTEND Internal Medicine
DX: Z00.00 Encounter for general adult medical examination without abnormal findings (principal); D64.9 Anemia, unspecified; Z86.19 Personal history of other infectious and parasitic diseases
CPT/HCPCS: 36415; 82607; 83540; 85025; 86592

== ENCOUNTER → 2019-06-05 | Outpatient (CLI) | payer BC ==
[2019-06-05 08:42] LABS: Basophils # (auto) 0.1 uL; Eosinophils # (auto) 0.2 uL; Mean Corpuscular Hemoglobin 22.5 pg (28.0-32.0); Monocytes # (auto) 0.5 uL; Red Cell Distribution Width 16.6 % (11.8-14.3)
[2019-06-05 08:44] LABS: Eosinophils % (auto) 2.7 % (0.0-7.0); Hematocrit 38.6 % (36.0-46.0); Hemoglobin 12.3 g/dL (12.2-16.2); Lymphocytes % (auto) 25.2 % (10.0-50.0); Mean Corpuscular Hgb Conc. 31.8 g/dL (32.0-36.0); Mean Corpuscular Volume 70.7 fL (80.0-100.0); Monocytes % (auto) 6.2 % (0.0-12.0); Neutrophils # (auto) 5.2 uL; Neutrophils % (auto) 64.9 % (37.0-80.0); Nucleated Red Blood Cells % 0.1 %; Platelet Count (auto) 438 10^3/uL (140-450); Red Blood Cells 5.47 10^6/uL (4.0-5.20); White Blood Cell 8.1 10^3/uL (4.4-10.8)
[2019-06-05 09:11] LABS: Calcium 8.6 mg/dL (8.5-10.1); Magnesium 1.9 mg/dL (1.6-2.6); Potassium 4.1 mmol/L (3.5-5.1)
[2019-06-05 09:18] LABS: Albumin 3.7 g/dL (3.4-5.0); BUN/Creatinine Ratio 16.7; Bilirubin, Total 0.5 mg/dL (0.2-1.0); Phosphorus 3.3 mg/dL (2.5-4.90); Total Protein 7.7 g/dL (6.4-8.2)
== END | disposition home or self-care (01) ==
LOC: LAB 08:25
PROVIDERS: ATTEND Internal Medicine Nephrology
DX: I10 Essential (primary) hypertension (principal)
CPT/HCPCS: 36415; 80053; 80061; 82088; 83735; 83835; 83970; 84100; 84244; 84439; 84443; 85025

== ENCOUNTER → 2019-06-17 | Outpatient (CLI) | payer BC ==
[2019-06-17 08:33] LABS: Eosinophils # (auto) 0.2 uL; Hemoglobin 13.2 g/dL (12.2-16.2); Neutrophils # (auto) 7.7 uL; Nucleated Red Blood Cells % 0.2 %; White Blood Cell 11.2 10^3/uL (4.4-10.8)
[2019-06-17 08:35] LABS: Basophils # (auto) 0.2 uL; Basophils % (auto) 1.4 % (0.0-2.0); Eosinophils % (auto) 1.6 % (0.0-7.0); Hematocrit 41.3 % (36.0-46.0); Lymphocytes # (auto) 2.6 uL; Lymphocytes % (auto) 23.2 % (10.0-50.0); Mean Corpuscular Hemoglobin 22.3 pg (28.0-32.0); Mean Corpuscular Hgb Conc. 31.8 g/dL (32.0-36.0); Mean Corpuscular Volume 70.2 fL (80.0-100.0); Monocytes # (auto) 0.6 uL; Monocytes % (auto) 5.4 % (0.0-12.0); Neutrophils % (auto) 68.4 % (37.0-80.0); Platelet Count (auto) 464 10^3/uL (140-450); Red Blood Cells 5.89 10^6/uL (4.0-5.20); Red Cell Distribution Width 16.5 % (11.8-14.3)
[2019-06-17 09:07] LABS: BUN/Creatinine Ratio 12.8; Calcium 9.2 mg/dL (8.5-10.1)
== END | disposition home or self-care (01) ==
LOC: LAB 08:02
DX: Z11.3 Encounter for screening for infections with a predominantly sexual mode of transmission (principal); A53.9 Syphilis, unspecified
CPT/HCPCS: 36415; 80048; 85025; 86592; 86695; 86696

== ENCOUNTER → 2019-11-25 | Emergency (ER) | payer BC ==
[~2019-11-25] VITALS: Ht 165.1 cm; Wt 104.3 kg
[2019-11-25 19:55] VITALS: BP 142/69
== END | disposition home or self-care (01) ==
LOC: ER 19:01
DX: R51 Headache (principal); Z20.828 Contact with and (suspected) exposure to other viral communicable diseases; M79.10 Myalgia, unspecified site; R11.2 Nausea with vomiting, unspecified; K21.9 Gastro-esophageal reflux disease without esophagitis; Z88.5 Allergy status to narcotic agent; Z88.2 Allergy status to sulfonamides; Z88.0 Allergy status to penicillin; Z88.8 Allergy status to other drugs, medicaments and biological substances; Z79.899 Other long term (current) drug therapy
CPT/HCPCS: 71045; 87070; 87804; 87880; 99284; C9803; U0003

== ENCOUNTER 2019-11-29 12:59 | Emergency (ER) | payer BC ==
[~2019-11-29] VITALS: Ht 165.1 cm; Wt 104.3 kg
[2019-11-29 13:19] VITALS: BP 141/60
[2019-11-29] MEDS ORDERED: SODIUM CHLORIDE 0.9% 1,000 ML IV ONE (13:30)
[2019-11-29] MEDS ORDERED: ONDANSETRON HCL 4 MG/2 ML VIAL IV ONE (13:30)
[2019-11-29 13:44] LABS: Urine WBC None Seen /hpf (0 - 5)
[2019-11-29 13:51] LABS: Urine Bacteria NONE SEEN /hpf (None Seen); Urine Blood 3+ /uL (Negative); Urine Mucus FEW (None Seen); Urine Specific Gravity 1.033 (1.001-1.035)
[2019-11-29 14:27] LABS: Basophils # (auto) 0.1 10 ^3/uL (0-0.2); Eosinophils # (auto) 0.2 10 ^3/uL (0-0.8); Hemoglobin 12.1 g/dL (12.2-16.2); Monocytes # (auto) 0.7 10 ^3/uL (0-1.3); Nucleated Red Blood Cells % 0.1 %
[2019-11-29 14:28] LABS: Basophils % (auto) 0.9 % (0.0-2.0); Eosinophils % (auto) 3.4 % (0.0-7.0); Hematocrit 37.9 % (36.0-46.0); Lymphocytes # (auto) 2.1 10 ^3/uL (0.4-5.4); Lymphocytes % (auto) 30.1 % (10.0-50.0); Mean Corpuscular Hemoglobin 23.3 pg (28.0-32.0); Mean Corpuscular Hgb Conc. 31.8 g/dL (32.0-36.0); Mean Corpuscular Volume 73.1 fL (80.0-100.0); Monocytes % (auto) 9.8 % (0.0-12.0); Neutrophils # (auto) 3.9 10 ^3/uL (1.6-8.6); Neutrophils % (auto) 55.8 % (37.0-80.0); Platelet Count (auto) 422 10^3/uL (140-450); Red Blood Cells 5.18 10^6/uL (4.0-5.20); Red Cell Distribution Width 16.6 % (11.8-14.3)
[2019-11-29] MEDS ORDERED: KETOROLAC TROMETH 30 MG/ML 1ML VIAL IV ONE (14:30)
[2019-11-29 14:43] LABS: BUN/Creatinine Ratio 22.1; Calcium 8.2 mg/dL (8.5-10.1); Potassium 3.8 mmol/L (3.5-5.1)
== END 2019-11-29 15:19 | disposition home or self-care (01) ==
LOC: ER 12:59 → EEVIPCON 12:59 → ER 15:19
DX: G43.909 Migraine, unspecified, not intractable, without status migrainosus (principal); K21.9 Gastro-esophageal reflux disease without esophagitis; I10 Essential (primary) hypertension; R11.2 Nausea with vomiting, unspecified
CPT/HCPCS: 36415; 70450; 80048; 81001; 85025; 96361; 96374; 96375; 99284; J1885; J2405; J7030

== ENCOUNTER → 2019-12-17 | Outpatient (CLI) | payer BC ==
[2019-12-18 06:17] LABS: RPR Non Reactive (Non Reactive)
== END | disposition home or self-care (01) ==
LOC: LAB 14:30
DX: A53.9 Syphilis, unspecified (principal)
CPT/HCPCS: 86592; 86703

== ENCOUNTER → 2020-01-01 | Outpatient (CLI) | payer BC | END | disposition home or self-care (01) | LOC: LAB 15:03 | PROVIDERS: ATTEND Nurse Practitioner Family | DX: Z03.818 Encounter for observation for suspected exposure to other biological agents ruled out (principal) ==

== ENCOUNTER 2020-01-07 14:33 | Inpatient (IN) | payer BC ==
[~2020-01-07] VITALS: Ht 165.1 cm; Wt 47.3 kg
[2020-01-07] MEDS ORDERED: ONDANSETRON HCL 4 MG/2 ML VIAL ONE (15:35)
[2020-01-07] MEDS ORDERED: SODIUM CHLORIDE 0.9% 1,000 ML IVB ONE (15:37)
[2020-01-07] MEDS ORDERED: ONDANSETRON HCL 4 MG/2 ML VIAL IV ONE (15:45)
[2020-01-07 16:16] LABS: Basophils # (auto) 0 10 ^3/uL (0-0.2); Basophils % (auto) 0.4 % (0.0-2.0); Eosinophils # (auto) 0 10 ^3/uL (0-0.8); Mean Corpuscular Volume 73.7 fL (80.0-100.0); Monocytes # (auto) 0.4 10 ^3/uL (0-1.3); Red Cell Distribution Width 16.9 % (11.8-14.3)
[2020-01-07 16:18] LABS: Eosinophils % (auto) 0.4 % (0.0-7.0); Hematocrit 39.8 % (36.0-46.0); Hemoglobin 12.5 g/dL (12.2-16.2); Lymphocytes # (auto) 0.9 10 ^3/uL (0.4-5.4); Lymphocytes % (auto) 20.9 % (10.0-50.0); Mean Corpuscular Hemoglobin 23.2 pg (28.0-32.0); Mean Corpuscular Hgb Conc. 31.4 g/dL (32.0-36.0); Monocytes % (auto) 9.8 % (0.0-12.0); Neutrophils # (auto) 2.9 10 ^3/uL (1.6-8.6); Neutrophils % (auto) 68.5 % (37.0-80.0); Nucleated Red Blood Cells % 0.1 %; Platelet Count (auto) 292 10^3/uL (140-450); White Blood Cell 4.3 10^3/uL (4.4-10.8)
[2020-01-07 16:28] LABS: Magnesium 2.3 mg/dL (1.6-2.6)
[2020-01-07 16:30] LABS: Albumin 3.2 g/dL (3.4-5.0); Calcium 7.7 mg/dL (8.5-10.1); Potassium 3.9 mmol/L (3.5-5.1)
[2020-01-07 16:32] LABS: BUN/Creatinine Ratio 10.1
[2020-01-07 16:35] LABS: Bilirubin, Total 0.3 mg/dL (0.2-1.0)
[2020-01-07] MEDS ORDERED: ACETAMINOPHEN 325 MG TAB PO ONE (17:30)
[2020-01-07] MEDS ORDERED: levoFLOXacin 500MG 100 ML IV ONE (18:45)
[2020-01-07] MEDS ORDERED: cefTRIAXone 1GM/50ML D5W 50 ML IV ONE (19:45)
[2020-01-07] MEDS ORDERED: MORPHINE SULF INJ 2 MG/ML SYRINGE 1ML IV PRN (19:45)
[2020-01-07] MEDS ORDERED: NITROGLYCERIN 0.4 MG SL TAB SL PRN (19:45)
[2020-01-07] MEDS ORDERED: AZITHROMYCIN 500MG/ 250ML 250 ML IV ONE (20:30)
[2020-01-07 22:00] VITALS: BP 117/73
[2020-01-07] MEDS ORDERED: ONDANSETRON HCL 4 MG/2 ML VIAL IV PRN (23:45)
[2020-01-07] MEDS ORDERED: ACETAMINOPHEN 325 MG TAB PO PRN (23:45)
[2020-01-08] MEDS ORDERED: TRIAMCINOLONE ACET 0.1% TOPICAL CREAM 15GM TOP ONE (03:15)
[2020-01-08] MEDS ORDERED: DOCUSATE SOD 100 MG CAP PO PRN (03:15)
[2020-01-08] MEDS ORDERED: NITROGLYCERIN 0.4 MG SL TAB SL PRN (03:15)
[2020-01-08] MEDS ORDERED: ALUM & MAG HYDROX-SIMETH LIQ(MAALOX) 30 ML PO PRN (03:15)
[2020-01-08] MEDS ORDERED: ONDANSETRON HCL 4 MG/2 ML VIAL IV PRN (03:15)
[2020-01-08] MEDS ORDERED: LORazepam 0.5 MG TAB PO PRN (03:15)
[2020-01-08] MEDS ORDERED: MORPHINE SULF INJ 2 MG/ML SYRINGE 1ML IV PRN ×2 (03:15)
[2020-01-08] MEDS: SODIUM CHLORIDE 0.9% 1,000 ML IV SCH ×2 (03:34→19:46)
[2020-01-08] MEDS: DOXYCYCLINE 100MG/250ML 250 ML IV SCH ×2 (03:42→15:19)
[2020-01-08 05:07] VITALS: BP 136/79
[2020-01-08 06:49] LABS: Basophils # (auto) 0 10 ^3/uL (0-0.2); Eosinophils # (auto) 0 10 ^3/uL (0-0.8); Monocytes # (auto) 0.4 10 ^3/uL (0-1.3); Nucleated Red Blood Cells % 0.1 %; White Blood Cell 4.3 10^3/uL (4.4-10.8)
[2020-01-08 06:53] LABS: Basophils % (auto) 0.4 % (0.0-2.0); Eosinophils % (auto) 0.4 % (0.0-7.0); Hematocrit 37.9 % (36.0-46.0); Hemoglobin 12.1 g/dL (12.2-16.2); Lymphocytes # (auto) 1.2 10 ^3/uL (0.4-5.4); Lymphocytes % (auto) 27.5 % (10.0-50.0); Mean Corpuscular Hemoglobin 23.3 pg (28.0-32.0); Mean Corpuscular Volume 72.9 fL (80.0-100.0); Monocytes % (auto) 8.7 % (0.0-12.0); Neutrophils # (auto) 2.7 10 ^3/uL (1.6-8.6); Platelet Count (auto) 269 10^3/uL (140-450); Red Cell Distribution Width 17.1 % (11.8-14.3)
[2020-01-08 07:04] LABS: INR 1.05 (0.9-1.15); Partial Thromboplastin Time 27.4 sec (23.0-31.2)
[2020-01-08 07:17] LABS: Calcium 7.4 mg/dL (8.5-10.1); Magnesium 2.2 mg/dL (1.6-2.6); Potassium 3.4 mmol/L (3.5-5.1)
[2020-01-08 07:19] LABS: BUN/Creatinine Ratio 8.8
[2020-01-08 07:21] LABS: Bilirubin, Total 0.2 mg/dL (0.2-1.0); Phosphorus 2.4 mg/dL (2.5-4.90); Total Protein 6.6 g/dL (6.4-8.2)
[2020-01-08 08:00] VITALS: BP 105/56
[2020-01-08] MEDS: ACETAMINOPHEN 325 MG TAB PO PRN (08:37)
[2020-01-08] MEDS ORDERED: cefTRIAXone 1GM/50ML D5W 50 ML IV SCH (09:00)
[2020-01-08] MEDS: PANTOPRAZOLE 40 MG TAB PO SCH (09:39)
[2020-01-08] MEDS: TRIAMCINOLONE ACET 0.1% TOPICAL CREAM 15GM TOP SCH ×2 (09:39→21:51)
[2020-01-08] MEDS ORDERED: ENOXAPARIN SOD 40 MG/0.4 ML SYRINGE SC SCH (10:00)
[2020-01-08] MEDS ORDERED: AZITHROMYCIN 500MG/ 250ML 250 ML IV SCH (10:00)
[2020-01-08 12:00] VITALS: BP 105/71
[2020-01-08] MEDS ORDERED: traMADol HCL 50 MG TAB PO PRN (13:00)
[2020-01-08] MEDS ORDERED: POTASSIUM CHL 20 Meq TABLET PO ONE (13:00)
[2020-01-08 14:43] LABS: Urine Bacteria FEW /hpf (None Seen); Urine Blood Negative /uL (Negative); Urine WBC 2 /hpf (0 - 5)
[2020-01-08 15:04] LABS: Alcohol, Urine < 3.0 mg/dL (0-10); Amphetamine Screen, Urine NEGATIVE (NEGATIVE); Barbiturate Scree,Urine NEGATIVE (NEGATIVE); Benzodiazephine Screen, Urine NEGATIVE (NEGATIVE); Cannabinoid Screen, Urine NEGATIVE (NEGATIVE); Cocaine Screen, Urine NEGATIVE (NEGATIVE); Opiate Scree,Urine NEGATIVE (NEGATIVE); Phencyclidine Screen, Urine NEGATIVE (NEGATIVE)
[2020-01-08 17:00] VITALS: BP 115/66
[2020-01-09] MEDS: ACETAMINOPHEN 325 MG TAB PO PRN (02:10)
[2020-01-09] MEDS: DOXYCYCLINE 100MG/250ML 250 ML IV SCH (02:26)
[2020-01-09 07:31] LABS: Basophils # (auto) 0 10 ^3/uL (0-0.2); Eosinophils # (auto) 0 10 ^3/uL (0-0.8); Nucleated Red Blood Cells % 0.1 %; White Blood Cell 5.7 10^3/uL (4.4-10.8)
[2020-01-09 07:34] LABS: Basophils % (auto) 0.7 % (0.0-2.0); Eosinophils % (auto) 0.4 % (0.0-7.0); Hematocrit 40.5 % (36.0-46.0); Lymphocytes # (auto) 1.8 10 ^3/uL (0.4-5.4); Lymphocytes % (auto) 30.8 % (10.0-50.0); Mean Corpuscular Hemoglobin 23.6 pg (28.0-32.0); Mean Corpuscular Hgb Conc. 32.1 g/dL (32.0-36.0); Mean Corpuscular Volume 73.4 fL (80.0-100.0); Monocytes # (auto) 0.5 10 ^3/uL (0-1.3); Neutrophils # (auto) 3.4 10 ^3/uL (1.6-8.6); Neutrophils % (auto) 60.1 % (37.0-80.0); Platelet Count (auto) 305 10^3/uL (140-450); Red Blood Cells 5.52 10^6/uL (4.0-5.20); Red Cell Distribution Width 16.9 % (11.8-14.3)
[2020-01-09 07:48] LABS: Calcium 7.5 mg/dL (8.5-10.1); Potassium 3.9 mmol/L (3.5-5.1)
[2020-01-09 09:00] VITALS: BP 105/64
[2020-01-09] MEDS: TRIAMCINOLONE ACET 0.1% TOPICAL CREAM 15GM TOP SCH (10:00)
[2020-01-09] MEDS: PANTOPRAZOLE 40 MG TAB PO SCH (11:28)
[2020-01-09] MEDS ORDERED: KETOROLAC TROMETH 30 MG/ML 1ML VIAL IV ONE (11:30)
[2020-01-09 13:00] VITALS: BP 90/52
[2020-01-09 14:05] VITALS: BP 90/52
== END 2020-01-09 15:15 | disposition home or self-care (01) | DRG 871 ==
LOC: ER 14:33 → TELE 14:34 → TELE-EAST 22:00 → TELE-WESTW 01-08 06:50 → WEST WING 01-08 23:29
PROVIDERS: ADMIT Hospitalist; ATTEND Internal Medicine
DX: A41.9 Sepsis, unspecified organism (principal); J18.9 Pneumonia, unspecified organism; E44.1 Mild protein-calorie malnutrition; Z68.1 Body mass index [BMI] 19.9 or less, adult; J98.11 Atelectasis; A53.9 Syphilis, unspecified; E83.51 Hypocalcemia; G43.909 Migraine, unspecified, not intractable, without status migrainosus; E66.01 Morbid (severe) obesity due to excess calories; I10 Essential (primary) hypertension; Z20.828 Contact with and (suspected) exposure to other viral communicable diseases; K21.9 Gastro-esophageal reflux disease without esophagitis; K57.30 Diverticulosis of large intestine without perforation or abscess without bleeding; N28.1 Cyst of kidney, acquired; K42.9 Umbilical hernia without obstruction or gangrene; Z83.3 Family history of diabetes mellitus; Z90.49 Acquired absence of other specified parts of digestive tract; Z88.1 Allergy status to other antibiotic agents; Z88.5 Allergy status to narcotic agent; Z88.0 Allergy status to penicillin; Z88.2 Allergy status to sulfonamides; Z88.8 Allergy status to other drugs, medicaments and biological substances; Z90.89 Acquired absence of other organs; Z82.49 Family history of ischemic heart disease and other diseases of the circulatory system
CPT/HCPCS: 36415; 71045; 74176; 80048; 80053; 80307; 81001; 83690; 83735; 84100; 84702; 85025; 85610; 85730; 87040; 87086; 87426; 93005; 96361; 96365; 96368; 96375; G0378; J0696; J1885; J1956; J2405; J3490

== ENCOUNTER → 2020-10-18 | Outpatient (CLI) | payer BC | END | disposition home or self-care (01) | LOC: LAB 07:25 | PROVIDERS: ATTEND Nurse Practitioner Family | DX: N39.0 Urinary tract infection, site not specified (principal) | CPT/HCPCS: 87086 ==

== ENCOUNTER → 2020-12-30 | Outpatient (CLI) | payer BC ==
[2020-12-30 09:40] LABS: Basophils # (auto) 0.1 10 ^3/uL (0-0.2); Eosinophils # (auto) 0.2 10 ^3/uL (0-0.8); Eosinophils % (auto) 1.9 % (0.0-7.0); Hemoglobin 13.3 g/dL (12.2-16.2); Mean Corpuscular Hemoglobin 24.4 pg (28.0-32.0); Monocytes # (auto) 0.5 10 ^3/uL (0-1.3); White Blood Cell 9.7 10^3/uL (4.4-10.8)
[2020-12-30 09:41] LABS: Hematocrit 39.7 % (36.0-46.0); Lymphocytes # (auto) 2.8 10 ^3/uL (0.4-5.4); Mean Corpuscular Hgb Conc. 33.5 g/dL (32.0-36.0); Neutrophils # (auto) 6.1 10 ^3/uL (1.6-8.6); Neutrophils % (auto) 63.1 % (37.0-80.0); Red Blood Cells 5.43 10^6/uL (4.0-5.20); Red Cell Distribution Width 15.7 % (11.8-14.3)
[2020-12-30 10:19] LABS: Albumin 3.6 g/dL (3.4-5.0); Calcium 8.7 mg/dL (8.5-10.1); Potassium 3.6 mmol/L (3.5-5.1)
[2020-12-30 10:26] LABS: BUN/Creatinine Ratio 14.9; Bilirubin, Total 0.4 mg/dL (0.2-1.0)
[2020-12-30 10:28] LABS: Thyroid Stimulating Hormone 1.07 uIU/mL (0.358-3.74)
[2020-12-30 13:34] LABS: Urine Bacteria FEW /hpf (None Seen); Urine Blood TRACE /uL (Negative); Urine Mucus FEW (None Seen); Urine WBC 19 /hpf (0 - 5)
[2020-12-31 08:06] LABS: RPR Non Reactive (Non Reactive)
== END | disposition home or self-care (01) ==
LOC: LAB 09:11
PROVIDERS: ATTEND Internal Medicine
DX: I10 Essential (primary) hypertension (principal); L40.9 Psoriasis, unspecified; A53.9 Syphilis, unspecified; N63.0 Unspecified lump in unspecified breast; Z80.3 Family history of malignant neoplasm of breast; Z80.41 Family history of malignant neoplasm of ovary; Z88.2 Allergy status to sulfonamides; Z88.1 Allergy status to other antibiotic agents; Z88.8 Allergy status to other drugs, medicaments and biological substances
CPT/HCPCS: 36415; 80053; 80061; 81001; 83615; 84439; 84443; 85025; 85652; 86304; 86592; 86703

== ENCOUNTER 2021-02-21 06:05 | Emergency (ER) | payer BC ==
[~2021-02-21] VITALS: Ht 165.1 cm; Wt 102.1 kg
[2021-02-21 06:55] VITALS: BP 129/75
[2021-02-21] MEDS ORDERED: cefTRIAXone SOD 1,000 MG VL IM ONE (07:00)
[2021-02-21] MEDS ORDERED: KETOROLAC TROMETH 60MG/2ML VIAL IM ONE (07:00)
[2021-02-21 07:42] LABS: Urine Bacteria FEW /hpf (None Seen); Urine Blood Negative /uL (Negative); Urine Mucus FEW (None Seen); Urine Specific Gravity 1.015 (1.001-1.035); Urine WBC 1 /hpf (0 - 5)
[2021-02-21] MEDS ORDERED: LIDOCAINE 1% HCL (LOCAL ANESTH.) INJ 20ML MDV ONE (07:42)
== END 2021-02-21 08:11 | disposition home or self-care (01) ==
LOC: EEVIPCON 06:05 → ER 06:05
DX: N39.0 Urinary tract infection, site not specified (principal); R10.9 Unspecified abdominal pain; K21.9 Gastro-esophageal reflux disease without esophagitis; I10 Essential (primary) hypertension; Z88.5 Allergy status to narcotic agent; Z88.2 Allergy status to sulfonamides; Z88.8 Allergy status to other drugs, medicaments and biological substances; Z90.49 Acquired absence of other specified parts of digestive tract; Z98.51 Tubal ligation status; Z90.89 Acquired absence of other organs
CPT/HCPCS: 74176; 81001; 96372; 99284; J0696; J1885; J2001

== ENCOUNTER → 2021-08-25 | Outpatient (CLI) | payer BC ==
[2021-08-25 13:49] LABS: Basophils # (auto) 0.1 10 ^3/uL (0-0.2); Eosinophils # (auto) 0.2 10 ^3/uL (0-0.8); Eosinophils % (auto) 2.3 % (0.0-7.0); Hemoglobin 12.6 g/dL (12.2-16.2); Lymphocytes # (auto) 2.6 10 ^3/uL (0.4-5.4); Monocytes # (auto) 0.5 10 ^3/uL (0-1.3)
[2021-08-25 13:50] LABS: Basophils % (auto) 1.3 % (0.0-2.0); Hematocrit 38.1 % (36.0-46.0); Lymphocytes % (auto) 26.8 % (10.0-50.0); Mean Corpuscular Hemoglobin 24.8 pg (28.0-32.0); Mean Corpuscular Hgb Conc. 33.1 g/dL (32.0-36.0); Mean Corpuscular Volume 74.8 fL (80.0-100.0); Monocytes % (auto) 5.3 % (0.0-12.0); Neutrophils # (auto) 6.3 10 ^3/uL (1.6-8.6); Neutrophils % (auto) 64.3 % (37.0-80.0); Red Blood Cells 5.09 10^6/uL (4.0-5.20); Red Cell Distribution Width 16.1 % (11.8-14.3); White Blood Cell 9.9 10^3/uL (4.4-10.8)
[2021-08-25 14:30] LABS: Urine Bacteria NONE SEEN /hpf (None Seen); Urine Blood Negative /uL (Negative); Urine Specific Gravity 1.018 (1.001-1.035); Urine WBC 10 /hpf (0 - 5)
[2021-08-25 14:37] LABS: Albumin 3.8 g/dL (3.4-5.0); Calcium 8.8 mg/dL (8.5-10.1); Potassium 3.7 mmol/L (3.5-5.1)
[2021-08-25 14:41] LABS: BUN/Creatinine Ratio 16.4; Bilirubin, Total 0.3 mg/dL (0.2-1.0); Total Protein 7.5 g/dL (6.4-8.2)
== END | disposition home or self-care (01) ==
LOC: LAB 13:19
PROVIDERS: ATTEND Internal Medicine
DX: K21.9 Gastro-esophageal reflux disease without esophagitis (principal); N39.0 Urinary tract infection, site not specified; I10 Essential (primary) hypertension; R42 Dizziness and giddiness
CPT/HCPCS: 36415; 80053; 81001; 82785; 84439; 84443; 85025; 85652

== ENCOUNTER → 2021-09-16 | Outpatient (CLI) | payer BC ==
[2021-09-16 15:59] LABS: Follicle Stimulating Hormone 4.62 IU/L (SEE BELOW); Leuteinizing Hormone 2.6 IU/L
== END | disposition home or self-care (01) ==
LOC: LAB 15:12
PROVIDERS: ATTEND Obstetrics & Gynecology
DX: N95.1 Menopausal and female climacteric states (principal)
CPT/HCPCS: 36415; 82670; 83001; 83002; 84403; 84443

== ENCOUNTER 2021-11-18 20:11 | Emergency (ER) | payer BC ==
[~2021-11-18] VITALS: Ht 165.1 cm; Wt 106.6 kg
[2021-11-18 22:23] LABS: Urine Bacteria NONE SEEN /hpf (None Seen); Urine Blood Negative /uL (Negative); Urine Specific Gravity 1.014 (1.001-1.035); Urine WBC 15 /hpf (0 - 5)
[2021-11-19 00:31] LABS: Basophils # (auto) 0.1 10 ^3/uL (0-0.2); Eosinophils # (auto) 0.3 10 ^3/uL (0-0.8); Lymphocytes # (auto) 3.4 10 ^3/uL (0.4-5.4); White Blood Cell 11.4 10^3/uL (4.4-10.8)
[2021-11-19 00:33] LABS: Basophils % (auto) 0.7 % (0.0-2.0); Eosinophils % (auto) 2.7 % (0.0-7.0); Hematocrit 40.6 % (36.0-46.0); Hemoglobin 12.8 g/dL (12.2-16.2); Lymphocytes % (auto) 29.9 % (10.0-50.0); Mean Corpuscular Hgb Conc. 31.6 g/dL (32.0-36.0); Monocytes # (auto) 0.7 10 ^3/uL (0-1.3); Monocytes % (auto) 5.9 % (0.0-12.0); Neutrophils # (auto) 6.9 10 ^3/uL (1.6-8.6); Neutrophils % (auto) 60.8 % (37.0-80.0); Red Blood Cells 5.34 10^6/uL (4.0-5.20); Red Cell Distribution Width 15.7 % (11.8-14.3)
[2021-11-19 00:41] LABS: Albumin 3.5 g/dL (3.4-5.0); BUN/Creatinine Ratio 17.4; Calcium 8.6 mg/dL (8.5-10.1); Potassium 3.6 mmol/L (3.5-5.1)
[2021-11-19 00:44] LABS: Bilirubin, Total 0.3 mg/dL (0.2-1.0); Total Protein 7.4 g/dL (6.4-8.2)
[2021-11-19] MEDS ORDERED: SODIUM CHLORIDE 0.9% 500 ML IVB ONE (08:30)
[2021-11-19] MEDS ORDERED: METOCLOPRAMIDE HCL 5MG/ml INJ 2ml VIAL IV ONE (08:30)
[2021-11-19] MEDS ORDERED: SODIUM CHLORIDE 0.9% 1,000 ML IV ONE (08:30)
[2021-11-19] MEDS ORDERED: KETOROLAC TROMETH 30 MG/ML 1ML VIAL IV ONE (08:30)
[2021-11-19] MEDS ORDERED: PANTOPRAZOLE 40 MG TAB PO ONE (10:30)
[2021-11-19] MEDS ORDERED: cefTRIAXone 1GM/50ML D5W 50 ML IV ONE (10:30)
[2021-11-19] MEDS ORDERED: DONNATAL 5ml ORAL Elix (BELLADONNA ALK-PHENOBARB) PO ONE (10:30)
[2021-11-19] MEDS ORDERED: ALUM & MAG HYDROX-SIMETH LIQ(MAALOX) 30 ML PO ONE (10:30)
[2021-11-19 13:35] VITALS: BP 123/74
[2021-11-19] MEDS ORDERED: MAGNSUS48 PO (13:42)
[2021-11-19] MEDS ORDERED: OMEP-263 PO (13:42)
[2021-11-19] MEDS ORDERED: METO-517 PO (13:42)
== END 2021-11-19 14:33 | disposition home or self-care (01) ==
LOC: ER 20:11 → EEVIPCON 20:11 → ER 11-19 14:33
DX: K59.89 Other specified functional intestinal disorders (principal); N39.0 Urinary tract infection, site not specified; K29.70 Gastritis, unspecified, without bleeding; I10 Essential (primary) hypertension; Z90.49 Acquired absence of other specified parts of digestive tract; Z90.89 Acquired absence of other organs; Z98.51 Tubal ligation status; Z88.2 Allergy status to sulfonamides; Z88.6 Allergy status to analgesic agent
CPT/HCPCS: 36415; 71046; 74176; 80053; 81001; 83690; 85025; 96361; 96365; 96366; 96375; 99285; J0696; J1885; J2765; J7030; J7040

== ENCOUNTER 2021-12-14 11:52 | Day surgery (SDC) | payer BC ==
[2021-12-13 14:46] LABS: Basophils # (auto) 0.1 10 ^3/uL (0-0.2); Eosinophils # (auto) 0.2 10 ^3/uL (0-0.8); Monocytes # (auto) 0.8 10 ^3/uL (0-1.3)
[2021-12-13 14:49] LABS: Basophils % (auto) 1.2 % (0.0-2.0); Eosinophils % (auto) 1.8 % (0.0-7.0); Hematocrit 40.9 % (36.0-46.0); Hemoglobin 12.9 g/dL (12.2-16.2); Lymphocytes # (auto) 2.9 10 ^3/uL (0.4-5.4); Lymphocytes % (auto) 25.3 % (10.0-50.0); Mean Corpuscular Hemoglobin 23.7 pg (28.0-32.0); Mean Corpuscular Hgb Conc. 31.6 g/dL (32.0-36.0); Mean Corpuscular Volume 74.9 fL (80.0-100.0); Neutrophils # (auto) 7.3 10 ^3/uL (1.6-8.6); Neutrophils % (auto) 64.7 % (37.0-80.0); Red Blood Cells 5.46 10^6/uL (4.0-5.20); Red Cell Distribution Width 15.3 % (11.8-14.3); White Blood Cell 11.3 10^3/uL (4.4-10.8)
[2021-12-13 15:14] LABS: INR 1.01 (0.9-1.15); Partial Thromboplastin Time 29.3 sec (24.6-33.4)
[2021-12-13 15:24] LABS: Urine Bacteria NONE SEEN /hpf (None Seen); Urine Blood Negative /uL (Negative); Urine Specific Gravity 1.018 (1.001-1.035); Urine WBC 1 /hpf (0 - 5)
[2021-12-13 15:25] LABS: Albumin 3.7 g/dL (3.4-5.0); BUN/Creatinine Ratio 17.5; Calcium 8.8 mg/dL (8.5-10.1); Potassium 3.7 mmol/L (3.5-5.1)
[2021-12-13 15:28] LABS: Bilirubin, Total 0.2 mg/dL (0.2-1.0); Total Protein 7.6 g/dL (6.4-8.2)
[~2021-12-14] VITALS: Ht 165.1 cm; Wt 104.3 kg
[~2021-12-14 11:52] MED LIST changes: +HYDR25TA4 PO; +LOSA-69 PO; -OMEP20TA PO; +PANT40TA2 PO
[2021-12-14] MEDS ORDERED: LIDOCAINE VISCOUS 2% 15ML UD ONE (14:36)
[2021-12-14] MEDS ORDERED: fentaNYL CITRATE 100 MCG/2 ML VL ONE (14:50)
[2021-12-14] MEDS ORDERED: MIDAZOLAM HCL 2MG/2ML 2ml VIAL (1mg/ml) ONE (14:51)
[2021-12-14] MEDS ORDERED: MEPERIDINE HCL (25 MG/ML) 1ML VIAL ONE (14:51)
[2021-12-14] MEDS ORDERED: MIDAZOLAM HCL 2MG/2ML 2ml VIAL (1mg/ml) IV PRN (15:00)
[2021-12-14] MEDS ORDERED: MORPHINE SULFATE 4 MG/ML SYR/VIAL IV PRN (15:00)
[2021-12-14] MEDS ORDERED: ePHEDrine SULFATE 50 MG/ML AMP IV PRN (15:00)
[2021-12-14] MEDS ORDERED: ONDANSETRON HCL 4 MG/2 ML VIAL IV PRN (15:00)
[2021-12-14] MEDS ORDERED: LABETALOL HCL 5 MG/ML 4ML SYRINGE IV PRN (15:00)
[2021-12-14] MEDS ORDERED: DexAMETHasone SOD PHOS 10MG/1ML VIAL INJ ONE (15:11)
[2021-12-14] MEDS ORDERED: PROPOFOL 10 MG/ML 20 ML IV ONE (15:11)
[2021-12-14 16:05] VITALS: BP 115/69
== END 2021-12-14 16:55 | disposition home or self-care (01) ==
LOC: GI 11:52
PROVIDERS: ATTEND Internal Medicine Gastroenterology
DX: R10.13 Epigastric pain (principal); K31.7 Polyp of stomach and duodenum; K29.50 Unspecified chronic gastritis without bleeding; K44.9 Diaphragmatic hernia without obstruction or gangrene; K62.1 Rectal polyp; K57.30 Diverticulosis of large intestine without perforation or abscess without bleeding; K64.8 Other hemorrhoids; K31.89 Other diseases of stomach and duodenum; I10 Essential (primary) hypertension; E66.9 Obesity, unspecified; Z20.822 Contact with and (suspected) exposure to COVID-19; Z90.89 Acquired absence of other organs; Z90.49 Acquired absence of other specified parts of digestive tract; Z98.51 Tubal ligation status; Z88.2 Allergy status to sulfonamides; Z88.8 Allergy status to other drugs, medicaments and biological substances; Z68.38 Body mass index [BMI] 38.0-38.9, adult; Z82.49 Family history of ischemic heart disease and other diseases of the circulatory system; Z83.3 Family history of diabetes mellitus
CPT/HCPCS: 36415; 43239; 45380; 80053; 81001; 81025; 84702; 85025; 85610; 85730; 88305; 88342; J1100; J2175; J2250; J2704; J3010; J7030; U0003; 45385; 99152; 99153

== ENCOUNTER 2021-12-19 08:21 | Inpatient (IN) | payer BC ==
[~2021-12-19] VITALS: Ht 165.1 cm; Wt 105.0 kg
[2021-12-19] MEDS ORDERED: DexAMETHasone SOD PHOS 10MG/1ML VIAL INJ IV ONE (08:45)
[2021-12-19] MEDS ORDERED: IPRATROPIUM BROM 0.5 MG/2.5ML INH SOL NEB ONE (08:45)
[2021-12-19] MEDS ORDERED: ALBUTEROL SULF 2.5 MG/0.5ML(0.5%) NEB SOLN NEB ONE (08:45)
[2021-12-19] MEDS ORDERED: AZITHROMYCIN 500MG/ 250ML 250 ML IV ONE (08:45)
[2021-12-19] MEDS ORDERED: cefTRIAXone 1GM/50ML D5W 50 ML IV ONE (08:45)
[2021-12-19 09:10] LABS: Basophils # (auto) 0.1 10 ^3/uL (0-0.2); Hemoglobin 12.7 g/dL (12.2-16.2); Lymphocytes # (auto) 1.1 10 ^3/uL (0.4-5.4); Monocytes # (auto) 0.7 10 ^3/uL (0-1.3); Monocytes % (auto) 6.5 % (0.0-12.0); Nucleated Red Blood Cells % 0.1 %
[2021-12-19 09:12] LABS: Basophils % (auto) 0.7 % (0.0-2.0); Eosinophils # (auto) 0.1 10 ^3/uL (0-0.8); Eosinophils % (auto) 1.5 % (0.0-7.0); Hematocrit 39.2 % (36.0-46.0); Lymphocytes % (auto) 11.1 % (10.0-50.0); Mean Corpuscular Hemoglobin 24.1 pg (28.0-32.0); Mean Corpuscular Hgb Conc. 32.2 g/dL (32.0-36.0); Mean Corpuscular Volume 74.6 fL (80.0-100.0); Neutrophils % (auto) 80.2 % (37.0-80.0); Red Blood Cells 5.26 10^6/uL (4.0-5.20); Red Cell Distribution Width 15.4 % (11.8-14.3)
[2021-12-19] MEDS ORDERED: FUROSEMIDE 20 MG/2 ML VIAL IV ONE (09:15)
[2021-12-19 09:24] LABS: Albumin 3.4 g/dL (3.4-5.0); Calcium 8.5 mg/dL (8.5-10.1); Potassium 3.9 mmol/L (3.5-5.1)
[2021-12-19 09:28] LABS: BUN/Creatinine Ratio 15.7; Bilirubin, Total 0.5 mg/dL (0.2-1.0); CRP High Sensitivity 0.52 mg/dL (< 0.3); Total Protein 6.9 g/dL (6.4-8.2)
[2021-12-19 10:10] LABS: Urine Bacteria MOD /hpf (None Seen); Urine Blood TRACE /uL (Negative); Urine Mucus FEW (None Seen); Urine Specific Gravity 1.016 (1.001-1.035); Urine WBC 16 /hpf (0 - 5)
[2021-12-19] MEDS ORDERED: IPRATROPIUM BROM 0.5 MG/2.5ML INH SOL NEB PRN (11:30)
[2021-12-19] MEDS ORDERED: ALBUTEROL SULF 2.5 MG/0.5ML(0.5%) NEB SOLN NEB PRN (11:30)
[2021-12-19] MEDS ORDERED: NITROGLYCERIN 0.4 MG SL TAB SL PRN (11:30)
[2021-12-19] MEDS ORDERED: KETOROLAC TROMETH 30 MG/ML 1ML VIAL IV ONE (11:30)
[2021-12-19] MEDS ORDERED: hydrALAZINE HCL 20 MG/ML VL IV PRN (11:45)
[2021-12-19] MEDS ORDERED: ALBUTEROL SULF 2.5 MG/0.5ML(0.5%) NEB SOLN NEB SCH (12:00)
[2021-12-19 12:07] LABS: Cholesterol 190 mg/dL (< 200); HDL Cholesterol 53 mg/dL (40-59); LDL Cholesterol 97 mg/dL (< 100); Triglycerides 295 mg/dL (< 150)
[2021-12-19 12:11] VITALS: BP 133/64
[2021-12-19] MEDS: IPRATROPIUM BROM 0.5 MG/2.5ML INH SOL NEB SCH ×2 (12:42→18:35)
[2021-12-19] MEDS ORDERED: PANTOPRAZOLE 40 MG TAB PO ONE (13:30)
[2021-12-19] MEDS ORDERED: methylPREDNISolone SOD SUCC 125 MG/2 ML VL IV ONE (13:30)
[2021-12-19 16:08] VITALS: BP 133/64
[2021-12-19] MEDS: LEVALBUTEROL HCL 1.25 MG/3 ML NEB NEB SCH (18:35)
[2021-12-19 20:00] VITALS: BP 115/66
[2021-12-19] MEDS: ZOLPIDEM TARTRATE 5 MG TAB PO PRN (20:27)
[2021-12-19 22:00] VITALS: BP 115/66
[2021-12-20 05:00] VITALS: BP_SYST 128; BP_SYST 140; BP_DIAS 60; BP_DIAS 88
[2021-12-20 06:20] LABS: Basophils # (auto) 0 10 ^3/uL (0-0.2); Eosinophils # (auto) 0 10 ^3/uL (0-0.8)
[2021-12-20 06:23] LABS: Basophils % (auto) 0.2 % (0.0-2.0); Hematocrit 39.8 % (36.0-46.0); Hemoglobin 12.8 g/dL (12.2-16.2); Lymphocytes # (auto) 1.3 10 ^3/uL (0.4-5.4); Lymphocytes % (auto) 8.3 % (10.0-50.0); Mean Corpuscular Hemoglobin 23.8 pg (28.0-32.0); Mean Corpuscular Hgb Conc. 32.1 g/dL (32.0-36.0); Monocytes # (auto) 0.5 10 ^3/uL (0-1.3); Monocytes % (auto) 3.5 % (0.0-12.0); Neutrophils # (auto) 13.3 10 ^3/uL (1.6-8.6); Red Blood Cells 5.38 10^6/uL (4.0-5.20); Red Cell Distribution Width 15.3 % (11.8-14.3); White Blood Cell 15.1 10^3/uL (4.4-10.8)
[2021-12-20] MEDS: LEVALBUTEROL HCL 1.25 MG/3 ML NEB NEB SCH ×2 (06:39)
[2021-12-20] MEDS: IPRATROPIUM BROM 0.5 MG/2.5ML INH SOL NEB SCH ×2 (06:39→12:11)
[2021-12-20 06:52] LABS: Potassium 4.1 mmol/L (3.5-5.1)
[2021-12-20 07:04] LABS: Albumin 3.4 g/dL (3.4-5.0); BUN/Creatinine Ratio 19.8; Bilirubin, Total 0.3 mg/dL (0.2-1.0); Calcium 8.9 mg/dL (8.5-10.1); Total Protein 7.2 g/dL (6.4-8.2)
[2021-12-20] MEDS ORDERED: cefTRIAXone 1GM/50ML D5W 50 ML IV SCH (09:00)
[2021-12-20 09:03] VITALS: BP 117/66
[2021-12-20] MEDS ORDERED: traMADol HCL 50 MG TAB PO ONE (09:15)
[2021-12-20] MEDS ORDERED: AZITHROMYCIN 500MG/ 250ML 250 ML IV SCH (10:00)
[2021-12-20] MEDS ORDERED: ENOXAPARIN SOD 40 MG/0.4 ML SYRINGE SC SCH (10:00)
[2021-12-20] MEDS ORDERED: methylPREDNISolone SOD SUCC 40 MG/ML VL IV SCH (10:00)
[2021-12-20] MEDS ORDERED: PANTOPRAZOLE 40 MG/10 ML VIAL INJ IV SCH (10:00)
[2021-12-20] MEDS: PANTOPRAZOLE 40 MG TAB PO SCH (10:11)
[2021-12-20] MEDS: FUROSEMIDE 20 MG/2 ML VIAL IV SCH (11:54)
[2021-12-20] MEDS ORDERED: ACETAMINOPHEN 500 MG TAB PO PRN (12:15)
[2021-12-20] MEDS ORDERED: POTASSIUM CHL 20 Meq TABLET PO ONE (12:15)
[2021-12-20 12:37] VITALS: BP 122/55
[2021-12-20] MEDS ORDERED: ERGOCALCIFEROL 50,000 UNIT(1.25MG) CAP PO SCH (13:00)
[2021-12-20 16:21] VITALS: BP 111/63
[2021-12-20 22:00] VITALS: BP 129/71
[2021-12-20] MEDS: ZOLPIDEM TARTRATE 5 MG TAB PO PRN (22:02)
[2021-12-21 06:28] LABS: BUN/Creatinine Ratio 29.6; Calcium 8.3 mg/dL (8.5-10.1); Potassium 4.5 mmol/L (3.5-5.1)
[2021-12-21 08:45] VITALS: BP 120/73
[2021-12-21] MEDS: PANTOPRAZOLE 40 MG TAB PO SCH (09:01)
[2021-12-21] MEDS: FUROSEMIDE 20 MG/2 ML VIAL IV SCH (09:01)
[2021-12-21] MEDS: cefTRIAXone 1GM/50ML D5W 50 ML IV SCH (09:01)
[2021-12-21 13:20] VITALS: BP 113/68
[2021-12-21 17:00] VITALS: BP 109/64
[2021-12-21 22:00] VITALS: BP 125/87
[2021-12-21] MEDS: ZOLPIDEM TARTRATE 5 MG TAB PO PRN (22:39)
[2021-12-22 05:00] VITALS: BP 118/81
[2021-12-22] MEDS: PANTOPRAZOLE 40 MG TAB PO SCH (08:45)
[2021-12-22 09:03] VITALS: BP 132/79
[2021-12-22] MEDS: cefTRIAXone 1GM/50ML D5W 50 ML IV SCH (09:13)
[2021-12-22] MEDS ORDERED: TRIAMTERENE/HCTZ 37.5/25 MG CAP/TAB PO SCH (10:00)
[2021-12-22] MEDS ORDERED: TRIA37.56 PO (12:24)
[2021-12-22] MEDS ORDERED: ALBU108A5 IN (12:24)
[2021-12-22] MEDS ORDERED: CEFU500T43 PO (12:24)
[2021-12-22 12:52] VITALS: BP 126/67
== END 2021-12-22 16:20 | disposition home or self-care (01) | DRG 291 ==
LOC: EEVIPCON 08:21 → ER 08:21 → TELE 11:32 → TELE-WESTW 15:25
PROVIDERS: ADMIT Registered Nurse; ATTEND Internal Medicine
DX: I11.0 Hypertensive heart disease with heart failure (principal); I50.31 Acute diastolic (congestive) heart failure; E87.4 Mixed disorder of acid-base balance; D84.9 Immunodeficiency, unspecified; N39.0 Urinary tract infection, site not specified; K21.9 Gastro-esophageal reflux disease without esophagitis; Z20.822 Contact with and (suspected) exposure to COVID-19; I77.819 Aortic ectasia, unspecified site; E66.9 Obesity, unspecified; Z90.49 Acquired absence of other specified parts of digestive tract; Z83.3 Family history of diabetes mellitus
CPT/HCPCS: 36415; 36600; 71045; 71250; 76775; 80048; 80053; 80061; 81001; 82306; 82728; 82805; 83880; 84443; 84484; 85025; 85379; 86141; 93005; 93306; 94640; 96365; 96368; 99291; G0378; J0696; J1100; J1885

== ENCOUNTER → 2022-02-21 | Outpatient (CLI) | payer BC ==
[~2022-02-21] MED LIST changes: +ALBU108A5 IN; +CEFU500T43 PO; +TRIA37.56 PO
== END | disposition home or self-care (01) ==
LOC: XY 16:54
PROVIDERS: ATTEND Internal Medicine
DX: R06.09 Other forms of dyspnea (principal)
CPT/HCPCS: 78582; A9540; A9558

== ENCOUNTER → 2022-02-27 | Outpatient (CLI) | payer BC ==
[2022-02-27 14:05] LABS: Urine WBC None Seen /hpf (0 - 5)
[2022-02-27 14:11] LABS: Basophils # (auto) 0.1 10 ^3/uL (0-0.2); Basophils % (auto) 1.2 % (0.0-2.0); Eosinophils # (auto) 0.2 10 ^3/uL (0-0.8); Eosinophils % (auto) 2.1 % (0.0-7.0); Hematocrit 40.3 % (36.0-46.0); Lymphocytes # (auto) 2.3 10 ^3/uL (0.4-5.4); Lymphocytes % (auto) 22.6 % (10.0-50.0); Mean Corpuscular Hemoglobin 24.3 pg (28.0-32.0); Mean Corpuscular Hgb Conc. 32.3 g/dL (32.0-36.0); Mean Corpuscular Volume 75.3 fL (80.0-100.0); Monocytes # (auto) 0.4 10 ^3/uL (0-1.3); Monocytes % (auto) 3.7 % (0.0-12.0); Neutrophils # (auto) 7.1 10 ^3/uL (1.6-8.6); Neutrophils % (auto) 70.4 % (37.0-80.0); Nucleated Red Blood Cells % 0.1 %; Red Blood Cells 5.34 10^6/uL (4.0-5.20); Red Cell Distribution Width 16.1 % (11.8-14.3); White Blood Cell 10.1 10^3/uL (4.4-10.8)
[2022-02-27 14:36] LABS: Albumin 3.7 g/dL (3.4-5.0); Calcium 8.8 mg/dL (8.5-10.1); Potassium 3.9 mmol/L (3.5-5.1)
[2022-02-27 14:40] LABS: BUN/Creatinine Ratio 16.9; Bilirubin, Total 0.3 mg/dL (0.2-1.0); Total Protein 7.2 g/dL (6.4-8.2)
[2022-02-27 14:58] LABS: Urine Bacteria MANY /hpf (None Seen); Urine Blood Negative /uL (Negative); Urine Specific Gravity 1.009 (1.001-1.035)
== END | disposition home or self-care (01) ==
LOC: LAB 13:38
PROVIDERS: ATTEND Internal Medicine
DX: I50.9 Heart failure, unspecified (principal); N39.0 Urinary tract infection, site not specified
CPT/HCPCS: 36415; 80053; 81001; 83880; 85025

== ENCOUNTER → 2022-02-28 | Outpatient (CLI) | payer BC | END | disposition home or self-care (01) | LOC: LAB 07:31 | PROVIDERS: ATTEND Internal Medicine Pulmonary Disease | DX: Z01.812 Encounter for preprocedural laboratory examination (principal); Z20.822 Contact with and (suspected) exposure to COVID-19 | CPT/HCPCS: 36415 ==

== ENCOUNTER → 2022-04-12 | Outpatient (CLI) | payer BC ==
[~2022-04-12] VITALS: Ht 165.1 cm; Wt 99.3 kg
[~2022-04-12] MED LIST changes: +ADENOSINE 83 MG in GIVE UN-DILUTED 0 ML IV STA
== END | disposition home or self-care (01) ==
LOC: XYW 07:23
PROVIDERS: ATTEND Internal Medicine
DX: Z01.810 Encounter for preprocedural cardiovascular examination (principal); I10 Essential (primary) hypertension; R63.8 Other symptoms and signs concerning food and fluid intake; Z68.38 Body mass index [BMI] 38.0-38.9, adult
CPT/HCPCS: 78452; 93017; A9500; J0153

== ENCOUNTER 2022-07-28 19:45 | Inpatient (IN) | payer BC ==
[~2022-07-28] VITALS: Ht 165.1 cm; Wt 100.0 kg
[~2022-07-28 19:45] MED LIST changes: -ADENOSINE 83 MG in GIVE UN-DILUTED 0 ML IV STA
[2022-07-28] MEDS ORDERED: ALBUTEROL SULF 2.5 MG/0.5ML(0.5%) NEB SOLN ONE (19:56)
[2022-07-28] MEDS ORDERED: ALBUTEROL SULF 2.5 MG/0.5ML(0.5%) NEB SOLN NEB ONE (20:00)
[2022-07-28] MEDS ORDERED: FUROSEMIDE 40 MG/4 ML VIAL IV ONE (20:15)
[2022-07-28 21:04] LABS: Urine Bacteria FEW /hpf (None Seen); Urine Blood Negative /uL (Negative); Urine Specific Gravity 1.019 (1.001-1.035); Urine WBC 5 /hpf (0 - 5)
[2022-07-28 21:07] LABS: Basophils # (auto) 0.1 10 ^3/uL (0-0.2); Basophils % (auto) 0.6 % (0.0-2.0); Eosinophils # (auto) 0.3 10 ^3/uL (0-0.8); Nucleated Red Blood Cells % 0.1 %; White Blood Cell 16.3 10^3/uL (4.4-10.8)
[2022-07-28 21:09] LABS: Hemoglobin 13.3 g/dL (12.2-16.2); Lymphocytes # (auto) 3.5 10 ^3/uL (0.4-5.4); Lymphocytes % (auto) 21.6 % (10.0-50.0); Mean Corpuscular Hgb Conc. 33.2 g/dL (32.0-36.0); Mean Corpuscular Volume 75.4 fL (80.0-100.0); Monocytes # (auto) 0.8 10 ^3/uL (0-1.3); Monocytes % (auto) 4.9 % (0.0-12.0); Neutrophils # (auto) 11.6 10 ^3/uL (1.6-8.6); Neutrophils % (auto) 70.9 % (37.0-80.0); Red Cell Distribution Width 16.1 % (11.8-14.3)
[2022-07-28 21:15] LABS: Albumin 3.9 g/dL (3.4-5.0); Calcium 8.7 mg/dL (8.5-10.1); Magnesium 1.9 mg/dL (1.6-2.6); Potassium 3.4 mmol/L (3.5-5.1)
[2022-07-28 21:18] LABS: BUN/Creatinine Ratio 13.3
[2022-07-28 21:19] LABS: Bilirubin, Total 0.4 mg/dL (0.2-1.0)
[2022-07-28] MEDS ORDERED: methylPREDNISolone SOD SUCC 125 MG/2 ML VL IV ONE (21:45)
[2022-07-28] MEDS ORDERED: DOCUSATE SOD 100 MG CAP PO PRN (22:30)
[2022-07-28] MEDS ORDERED: POTASSIUM CHL 20 Meq TABLET PO ONE (22:30)
[2022-07-28] MEDS ORDERED: ONDANSETRON HCL 4 MG/2 ML VIAL IV PRN (22:30)
[2022-07-28] MEDS ORDERED: TEMAZEPAM 15 MG CAP PO PRN (22:30)
[2022-07-28] MEDS ORDERED: ACETAMINOPHEN 325 MG TAB PO PRN (22:30)
[2022-07-28] MEDS ORDERED: MORPHINE SULFATE INJ 2 MG/ml SYRG IV PRN ×2 (22:30→23:30)
[2022-07-28] MEDS ORDERED: ALBUTEROL SULF 2.5 MG/0.5ML(0.5%) NEB SOLN NEB PRN (22:30)
[2022-07-28] MEDS ORDERED: SODIUM CHLORIDE 0.9% 1,000 ML IV SCH (22:30)
[2022-07-28] MEDS ORDERED: cefTRIAXone 1GM/50ML D5W 50 ML IV ONE (22:30)
[2022-07-28] MEDS ORDERED: hydrALAZINE HCL 20 MG/ML VL IV PRN (22:45)
[2022-07-28 22:54] VITALS: BP 114/69
[2022-07-28] MEDS ORDERED: NITROGLYCERIN 0.4 MG SL TAB SL PRN (23:30)
[2022-07-29 05:00] VITALS: BP 132/73
[2022-07-29 05:21] VITALS: BP_SYST 131; BP_SYST 132; BP_DIAS 73
[2022-07-29] MEDS ORDERED: methylPREDNISolone SOD SUCC 40 MG/ML VL IV SCH (06:00)
[2022-07-29] MEDS ORDERED: POTA1TAB61 PO (06:37)
[2022-07-29] MEDS ORDERED: FURO40TA4 PO (06:38)
[2022-07-29 07:25] LABS: Basophils # (auto) 0 10 ^3/uL (0-0.2); Eosinophils # (auto) 0 10 ^3/uL (0-0.8); Hemoglobin 13.2 g/dL (12.2-16.2); Red Cell Distribution Width 16.5 % (11.8-14.3)
[2022-07-29 07:29] LABS: Hematocrit 38.6 % (36.0-46.0); Lymphocytes % (auto) 8.2 % (10.0-50.0); Mean Corpuscular Hemoglobin 25.6 pg (28.0-32.0); Mean Corpuscular Hgb Conc. 34.2 g/dL (32.0-36.0); Mean Corpuscular Volume 74.7 fL (80.0-100.0); Monocytes # (auto) 0 10 ^3/uL (0-1.3); Monocytes % (auto) 0.4 % (0.0-12.0); Neutrophils # (auto) 11.7 10 ^3/uL (1.6-8.6); Neutrophils % (auto) 91.4 % (37.0-80.0); Nucleated Red Blood Cells % 0.1 %; Red Blood Cells 5.17 10^6/uL (4.0-5.20); White Blood Cell 12.8 10^3/uL (4.4-10.8)
[2022-07-29 07:44] LABS: Calcium 8.7 mg/dL (8.5-10.1); Potassium 3.8 mmol/L (3.5-5.1)
[2022-07-29] MEDS ORDERED: ALBUTEROL SULF 2.5 MG/0.5ML(0.5%) NEB SOLN NEB PRN (07:45)
[2022-07-29] MEDS ORDERED: IPRATROPIUM BROM 0.5 MG/2.5ML INH SOL NEB PRN (07:45)
[2022-07-29] MEDS ORDERED: FUROSEMIDE 20 MG/2 ML VIAL IV ONE (07:45)
[2022-07-29 07:48] LABS: BUN/Creatinine Ratio 17.2; Bilirubin, Total 0.5 mg/dL (0.2-1.0); Total Protein 8.3 g/dL (6.4-8.2)
[2022-07-29 09:00] VITALS: BP 111/55
[2022-07-29] MEDS ORDERED: ASPirin 81 mg TAB PO SCH (10:00)
[2022-07-29] MEDS ORDERED: POTASSIUM CHL 20 Meq TABLET PO ONE (10:45)
[2022-07-29] MEDS ORDERED: MAGNESIUM OXIDE 400 MG TAB PO ONE (10:45)
[2022-07-29 13:00] VITALS: BP 132/70
[2022-07-29 13:19] VITALS: BP 132/70
[2022-07-29] MEDS ORDERED: cefTRIAXone 1GM/50ML D5W 50 ML IV SCH (21:00)
== END 2022-07-29 14:12 | disposition home or self-care (01) | DRG 191 ==
LOC: EEVIPCON 19:45 → ER 19:45 → OVERFLOW 23:16 → EAST 07-29 04:26
PROVIDERS: ADMIT Nurse Practitioner Family; ATTEND Nurse Practitioner Family
DX: J44.1 Chronic obstructive pulmonary disease with (acute) exacerbation (principal); N39.0 Urinary tract infection, site not specified; Z20.822 Contact with and (suspected) exposure to COVID-19; K21.9 Gastro-esophageal reflux disease without esophagitis; E87.6 Hypokalemia; G47.30 Sleep apnea, unspecified; E66.9 Obesity, unspecified; I50.9 Heart failure, unspecified; I11.0 Hypertensive heart disease with heart failure; Z88.5 Allergy status to narcotic agent; Z88.2 Allergy status to sulfonamides; Z83.3 Family history of diabetes mellitus; Z82.49 Family history of ischemic heart disease and other diseases of the circulatory system; Z68.36 Body mass index [BMI] 36.0-36.9, adult
CPT/HCPCS: 36415; 71046; 80053; 81001; 83735; 83880; 84484; 85025; 85379; 87086; 87426; 93005; 94640; G0378; J0696

== ENCOUNTER → 2022-08-07 | Outpatient (CLI) | payer BC ==
[~2022-08-07] MED LIST changes: +FURO40TA4 PO; +POTA1TAB61 PO
== END | disposition home or self-care (01) ==
LOC: LAB 08:12
PROVIDERS: ATTEND Licensed Practical Nurse
DX: N39.0 Urinary tract infection, site not specified (principal)
CPT/HCPCS: 87086

== ENCOUNTER 2022-10-16 08:57 | Emergency (ER) | payer BC ==
[~2022-10-16] VITALS: Ht 165.1 cm; Wt 89.7 kg
[2022-10-16 09:46] LABS: Basophils # (auto) 0.1 10 ^3/uL (0-0.2); Eosinophils # (auto) 0.2 10 ^3/uL (0-0.8); Hemoglobin 13.4 g/dL (12.2-16.2); Lymphocytes # (auto) 1.5 10 ^3/uL (0.4-5.4); Mean Corpuscular Volume 75.4 fL (80.0-100.0); Monocytes # (auto) 0.3 10 ^3/uL (0-1.3); Neutrophils # (auto) 11.9 10 ^3/uL (1.6-8.6)
[2022-10-16 09:48] LABS: Basophils % (auto) 0.8 % (0.0-2.0); Eosinophils % (auto) 1.2 % (0.0-7.0); Hematocrit 40.6 % (36.0-46.0); Lymphocytes % (auto) 10.5 % (10.0-50.0); Mean Corpuscular Hemoglobin 24.8 pg (28.0-32.0); Monocytes % (auto) 1.9 % (0.0-12.0); Neutrophils % (auto) 85.6 % (37.0-80.0); Nucleated Red Blood Cells % 0.6 %; Red Blood Cells 5.38 10^6/uL (4.0-5.20); Red Cell Distribution Width 15.8 % (11.8-14.3); White Blood Cell 13.9 10^3/uL (4.4-10.8)
[2022-10-16 09:59] LABS: Urine Bacteria NONE SEEN /hpf (None Seen); Urine Blood Negative /uL (Negative); Urine Mucus FEW (None Seen); Urine Specific Gravity 1.033 (1.001-1.035); Urine WBC 1 /hpf (0 - 5)
[2022-10-16 10:56] LABS: Albumin 4.1 g/dL (3.4-5.0); Calcium 9.1 mg/dL (8.5-10.1)
[2022-10-16 11:00] LABS: BUN/Creatinine Ratio 16.9 (10.0-20.0); Bilirubin, Total 0.5 mg/dL (0.2-1.0); Total Protein 7.4 g/dL (6.4-8.2)
[2022-10-16] MEDS ORDERED: TAMSULOSIN HYDROCHLORIDE 0.4 MG CAP PO ONE (11:45)
[2022-10-16] MEDS ORDERED: LACTATED RINGER'S 1,000 ML IV ONE (11:45)
[2022-10-16] MEDS ORDERED: MAGNESIUM SULFATE 1GM/100ML 100 ML IV ONE (11:45)
[2022-10-16] MEDS ORDERED: HYDROcodone-ACET 5/325MG TAB PO ONE (11:45)
[2022-10-16] MEDS ORDERED: KETOROLAC TROMETH 30 MG/ML 1ML VIAL IV ONE (13:00)
[2022-10-16] MEDS ORDERED: TAM04C PO (13:22)
[2022-10-16 14:07] VITALS: BP 128/54
== END 2022-10-16 14:10 | disposition home or self-care (01) ==
LOC: ER 08:57 → EEVIPCON 08:57 → ER 14:10
DX: M54.59 Other low back pain (principal); R11.2 Nausea with vomiting, unspecified; I11.0 Hypertensive heart disease with heart failure; I50.9 Heart failure, unspecified; K21.9 Gastro-esophageal reflux disease without esophagitis; Z98.51 Tubal ligation status; Z90.49 Acquired absence of other specified parts of digestive tract; Z98.890 Other specified postprocedural states; Z88.2 Allergy status to sulfonamides; Z88.8 Allergy status to other drugs, medicaments and biological substances
CPT/HCPCS: 36415; 74176; 80053; 81001; 81025; 85025; 96365; 96375; 99285; J1885; J3475

== ENCOUNTER 2022-10-27 07:18 | Emergency (ER) | payer BC ==
[~2022-10-27] VITALS: Ht 165.1 cm; Wt 93.2 kg
[~2022-10-27 07:18] MED LIST changes: -LOSA-69 PO; +LOSA50TA46 PO; +TAMS-35 PO; -TRIA37.56 PO; +TRIA37.587 PO
[2022-10-27] MEDS ORDERED: ALBUTEROL SULF 2.5 MG/0.5ML(0.5%) NEB SOLN NEB ONE ×2 (07:30→08:15)
[2022-10-27] MEDS ORDERED: IPRATROPIUM BROM 0.5 MG/2.5ML INH SOL NEB ONE ×2 (07:30→08:15)
[2022-10-27 07:49] LABS: Basophils # (auto) 0.1 10 ^3/uL (0-0.2); Basophils % (auto) 0.6 % (0.0-2.0); Eosinophils # (auto) 0.3 10 ^3/uL (0-0.8); Hemoglobin 13.6 g/dL (12.2-16.2); Mean Corpuscular Volume 74.9 fL (80.0-100.0); Monocytes # (auto) 0.9 10 ^3/uL (0-1.3); Neutrophils % (auto) 75.9 % (37.0-80.0)
[2022-10-27 07:51] LABS: Eosinophils % (auto) 2.2 % (0.0-7.0); Hematocrit 42.2 % (36.0-46.0); Lymphocytes # (auto) 2.2 10 ^3/uL (0.4-5.4); Mean Corpuscular Hemoglobin 24.2 pg (28.0-32.0); Mean Corpuscular Hgb Conc. 32.4 g/dL (32.0-36.0); Monocytes % (auto) 6.3 % (0.0-12.0); Neutrophils # (auto) 11.3 10 ^3/uL (1.6-8.6); Nucleated Red Blood Cells % 0.2 %; Red Blood Cells 5.63 10^6/uL (4.0-5.20); Red Cell Distribution Width 15.8 % (11.8-14.3)
[2022-10-27 08:06] LABS: Albumin 3.9 g/dL (3.4-5.0); Calcium 9.4 mg/dL (8.5-10.1); Potassium 4.6 mmol/L (3.5-5.1)
[2022-10-27 08:09] LABS: Bilirubin, Total 0.6 mg/dL (0.2-1.0); Total Protein 7.6 g/dL (6.4-8.2)
[2022-10-27] MEDS ORDERED: DexAMETHasone SOD PHOS 10MG/1ML VIAL INJ IV ONE (08:15)
[2022-10-27] MEDS: MAGNESIUM SULFATE 1GM/100ML 100 ML IV SCH ×2 (08:52→10:34)
[2022-10-27] MEDS ORDERED: ALBU108A5 IN (10:45)
[2022-10-27 11:02] VITALS: BP 122/70
== END 2022-10-27 12:06 | disposition home or self-care (01) ==
LOC: EEVIPCON 07:18 → ER 07:18
DX: J45.909 Unspecified asthma, uncomplicated (principal); K21.9 Gastro-esophageal reflux disease without esophagitis; I11.0 Hypertensive heart disease with heart failure; I50.9 Heart failure, unspecified; Z98.51 Tubal ligation status; Z90.49 Acquired absence of other specified parts of digestive tract; Z90.89 Acquired absence of other organs
CPT/HCPCS: 36415; 71045; 80053; 83880; 84484; 85025; 93005; 94640; 96365; 96366; 96375; 99285; J1100; J3475; J7644

== ENCOUNTER 2023-01-25 20:43 | Inpatient (IN) | payer BC, MEDICAID ==
[~2023-01-25] VITALS: Ht 165.1 cm; Wt 99.3 kg
[2023-01-25 22:17] LABS: Hematocrit 42.1 % (36.0-46.0); Hemoglobin 13.9 g/dL (12.2-16.2); Mean Corpuscular Hgb Conc. 32.9 g/dL (32.0-36.0); Red Blood Cells 5.55 10^6/uL (4.0-5.20); Red Cell Distribution Width 15.6 % (11.8-14.3); White Blood Cell 26.6 10^3/uL (4.4-10.8)
[2023-01-25 22:21] LABS: Basophils % (manual) 0 (0.0-2.0); Blast Cells 0; Eosinophils % (manual) 0 (0-7); Metamyelocytes % 0; Myelocytes % 0; Promyelocytes % 0; Reactive Lymphocytes 0
[2023-01-25 22:37] LABS: Alanine Aminotransferase 13 U/L (7-40); Albumin 4.8 g/dL (3.2-4.8); Alkaline Phosphatase 91 U/L (46-116); Anion Gap 10.2 (5-15); Aspartate Aminotransferase < 8 U/L (13-40); BUN/Creatinine Ratio 9.6 (10.0-20.0); Bilirubin, Total 0.6 mg/dL (0.2-1.0); Blood Urea Nitrogen 9 mg/dL (9-23); Calcium 9.8 mg/dL (8.7-10.4); Carbon Dioxide 24.8 mmol/L (20-30); Chloride 103 mmol/L (98-107); Glucose 129 mg/dL (74-106); Lipase 35 U/L (12-53); Potassium 3.4 mmol/L (3.5-5.1); Sodium 138 mmol/L (136-145)
[2023-01-25 22:38] LABS: Total Protein 8.1 g/dL (5.7-8.2)
[2023-01-25 23:15] LABS: Band Neutrophils % (manual) 7; Lymphocytes % (manual) 3 (10.0-50.0); Monocytes % (manual) 4 (0-12)
[2023-01-25 23:16] LABS: Anisocytosis Slight; Platelet Estimate Increased
[2023-01-25] MEDS ORDERED: LACTATED RINGER'S 2,700 ML IV ONE (23:45)
[2023-01-25] MEDS ORDERED: PIPERACILLIN-TAZOB 3.375GM 100 ML IV ONE (23:45)
[2023-01-25] MEDS ORDERED: VANCOMYCIN 1GM/250ML 250 ML IV ONE (23:45)
[2023-01-25] MEDS ORDERED: IOHEXOL 300 MG/ML 100ML BOTTLE IJ ONE (23:47)
[2023-01-26] VITALS (7 sets, daily range): BP systolic 99–106; BP diastolic 56–58; PULSE 54–81; RESP 16–18; TEMP 98.3–98.6; O2SAT 94–96
[2023-01-26] MEDS ORDERED: ONDANSETRON ODT 4 MG TAB PO ONE
[2023-01-26] MEDS ORDERED: IOHEXOL 300 MG/ML 100ML BOTTLE IJ ONE (00:26)
[2023-01-26] MEDS ORDERED: KETOROLAC TROMETH 30 MG/ML 1ML VIAL IV ONE (01:00)
[2023-01-26 01:38] LABS: Lactic Acid w/Reflex 3.2 mmol/L (0.4-2.0)
[2023-01-26] MEDS ORDERED: ONDANSETRON HCL 4 MG/2 ML VIAL IV ONE (03:00)
[2023-01-26 03:09] LABS: Urine Bacteria NONE SEEN /hpf (None Seen); Urine Blood Negative /uL (Negative); Urine Clarity Clear (Clear); Urine Color Colorless (Yellow); Urine Protein, UAD 1+ (Negative); Urine Urobilinogen Normal (Negative); Urine WBC <1 /hpf (0 - 5); Urine pH 6.5 (5.0-8.0)
[2023-01-26 03:10] LABS: Urine Specific Gravity > 1.050 (1.001-1.035)
[2023-01-26] MEDS ORDERED: VANCOMYCIN PER PHARMACY 0 MG IV SCH (04:45)
[2023-01-26] MEDS ORDERED: MORPHINE SULFATE INJ 2 MG/ml SYRG IV PRN ×2 (04:45)
[2023-01-26] MEDS ORDERED: NITROGLYCERIN 0.4 MG SL TAB SL PRN (04:45)
[2023-01-26] MEDS ORDERED: HYDROcodone-ACET 5/325MG TAB PO PRN (04:45)
[2023-01-26] MEDS: SODIUM CHLORIDE 0.9% 1,000 ML IV SCH ×2 (06:08→21:25)
[2023-01-26 08:07] LABS: Basophils # (auto) 0.1 10 ^3/uL (0-0.2); Basophils % (auto) 0.5 % (0.0-2.0); Eosinophils # (auto) 0.2 10 ^3/uL (0-0.8); Eosinophils % (auto) 1.4 % (0.0-7.0); Hematocrit 32.9 % (36.0-46.0); Hemoglobin 10.8 g/dL (12.2-16.2); Lymphocytes # (auto) 1.8 10 ^3/uL (0.4-5.4); Lymphocytes % (auto) 14.9 % (10.0-50.0); Mean Corpuscular Hemoglobin 25.2 pg (28.0-32.0); Mean Corpuscular Volume 76.6 fL (80.0-100.0); Monocytes # (auto) 0.7 10 ^3/uL (0-1.3); Monocytes % (auto) 5.6 % (0.0-12.0); Neutrophils # (auto) 9.6 10 ^3/uL (1.6-8.6); Neutrophils % (auto) 77.6 % (37.0-80.0); Red Blood Cells 4.29 10^6/uL (4.0-5.20); Red Cell Distribution Width 15.8 % (11.8-14.3); White Blood Cell 12.4 10^3/uL (4.4-10.8)
[2023-01-26 08:23] LABS: Alanine Aminotransferase 12 U/L (7-40); Albumin 3.4 g/dL (3.2-4.8); Alkaline Phosphatase 61 U/L (46-116); Anion Gap 5.5 (5-15); Aspartate Aminotransferase < 8 U/L (13-40); Bilirubin, Total 0.7 mg/dL (0.2-1.0); Blood Urea Nitrogen 9 mg/dL (9-23); Calcium 7.9 mg/dL (8.5-10.1); Carbon Dioxide 25.5 mmol/L (20-30); Chloride 105 mmol/L (98-107); Glucose 106 mg/dL (74-106); Potassium 3.4 mmol/L (3.5-5.1); Sodium 136 mmol/L (136-145); Total Protein 5.7 g/dL (5.7-8.2)
[2023-01-26] MEDS: KETOROLAC TROMETH 30 MG/ML 1ML VIAL IV PRN ×2 (09:12→18:57)
[2023-01-26] MEDS: ONDANSETRON HCL 4 MG/2 ML VIAL IV PRN ×2 (09:12→18:58)
[2023-01-26 09:19] LABS: INR 1.18 (0.9-1.15); Prothrombin Time 12.3 sec (9.3-11.8)
[2023-01-26] MEDS: ACETAMINOPHEN 325 MG TAB PO PRN (12:57)
[2023-01-26] MEDS ORDERED: VANCOMYCIN 1GM/250ML 250 ML IV SCH (13:00)
[2023-01-26] MEDS: PIPERACILLIN-TAZOB 3.375GM 100 ML IV SCH (15:00)
[2023-01-26] MEDS ORDERED: PANTOPRAZOLE 40 MG/10 ML VIAL INJ IV ONE (16:30)
[2023-01-26] MEDS: SUCRALFATE 1 GM/10 ML ORAL SUSP PO SCH (22:00)
[2023-01-27] MEDS: PIPERACILLIN-TAZOB 3.375GM 100 ML IV SCH ×2 (03:03→15:04)
[2023-01-27 06:32] LABS: Basophils # (auto) 0 10 ^3/uL (0-0.2); Eosinophils # (auto) 0.3 10 ^3/uL (0-0.8); Hemoglobin 10.8 g/dL (12.2-16.2); Monocytes # (auto) 0.5 10 ^3/uL (0-1.3); Neutrophils # (auto) 4.2 10 ^3/uL (1.6-8.6); Nucleated Red Blood Cells % 0.1 %
[2023-01-27] MEDS: SUCRALFATE 1 GM/10 ML ORAL SUSP PO SCH ×4 (06:35→21:31)
[2023-01-27 06:36] LABS: Basophils % (auto) 0.6 % (0.0-2.0); Eosinophils % (auto) 3.4 % (0.0-7.0); Hematocrit 32.8 % (36.0-46.0); Lymphocytes # (auto) 2.5 10 ^3/uL (0.4-5.4); Lymphocytes % (auto) 33.3 % (10.0-50.0); Mean Corpuscular Hemoglobin 25.1 pg (28.0-32.0); Mean Corpuscular Hgb Conc. 32.9 g/dL (32.0-36.0); Mean Corpuscular Volume 76.2 fL (80.0-100.0); Monocytes % (auto) 7.2 % (0.0-12.0); Neutrophils % (auto) 55.5 % (37.0-80.0); Red Blood Cells 4.31 10^6/uL (4.0-5.20); Red Cell Distribution Width 15.9 % (11.8-14.3); White Blood Cell 7.5 10^3/uL (4.4-10.8)
[2023-01-27 07:59] LABS: Alanine Aminotransferase 10 U/L (7-40); Albumin 3.6 g/dL (3.2-4.8); Alkaline Phosphatase 57 U/L (46-116); Anion Gap 8.1 (5-15); Aspartate Aminotransferase < 8 U/L (13-40); BUN/Creatinine Ratio 11.5 (10.0-20.0); Blood Urea Nitrogen 9 mg/dL (9-23); Carbon Dioxide 24.9 mmol/L (20-30); Chloride 105 mmol/L (98-107); Glucose 91 mg/dL (74-106); Potassium 3.2 mmol/L (3.5-5.1); Sodium 138 mmol/L (136-145)
[2023-01-27 08:00] VITALS: RESP 17; O2SAT 95
[2023-01-27 08:00] LABS: Bilirubin, Total 0.5 mg/dL (0.2-1.0)
[2023-01-27] MEDS: PANTOPRAZOLE 40 MG/10 ML VIAL INJ IV SCH (08:41)
[2023-01-27] MEDS: ONDANSETRON HCL 4 MG/2 ML VIAL IV PRN ×2 (08:41→23:31)
[2023-01-27 09:13] VITALS: BP 103/67; PULSE 45; RESP 17; TEMP 98.1; O2SAT 95
[2023-01-27] MEDS ORDERED: POTASSIUM CHL 20MEQ/100ML 100 ML IV ONE (11:00)
[2023-01-27] MEDS: SODIUM CHLORIDE 0.9% 1,000 ML IV SCH (11:21)
[2023-01-27 12:47] VITALS: BP 113/70; PULSE 49; RESP 18; TEMP 97.6; O2SAT 97
[2023-01-27 16:50] VITALS: BP 126/74; PULSE 52; RESP 18; TEMP 98.5; O2SAT 99
[2023-01-27 20:00] VITALS: O2SAT 95
[2023-01-27 22:00] VITALS: BP 98/52; PULSE 42; RESP 17; TEMP 98.2; O2SAT 95
[2023-01-27] MEDS: MAALOX PLUS or MAALOX 30 ML PO PRN (23:05)
[2023-01-27] MEDS: HYDROmorphone HCL 2 MG/ML VL/or syr IV PRN (23:08)
[2023-01-28] MEDS: MAALOX PLUS or MAALOX 30 ML PO PRN ×5 (01:03→22:05)
[2023-01-28] MEDS: PIPERACILLIN-TAZOB 3.375GM 100 ML IV SCH ×2 (03:22→15:15)
[2023-01-28 06:07] LABS: Basophils # (auto) 0.1 10 ^3/uL (0-0.2); Eosinophils # (auto) 0.2 10 ^3/uL (0-0.8); Hematocrit 31.3 % (36.0-46.0); Hemoglobin 10.2 g/dL (12.2-16.2); Lymphocytes # (auto) 2.3 10 ^3/uL (0.4-5.4); Monocytes # (auto) 0.6 10 ^3/uL (0-1.3); Monocytes % (auto) 6.1 % (0.0-12.0)
[2023-01-28 06:14] LABS: Basophils % (auto) 0.6 % (0.0-2.0); Eosinophils % (auto) 2.7 % (0.0-7.0); Lymphocytes % (auto) 24.8 % (10.0-50.0); Mean Corpuscular Hemoglobin 24.7 pg (28.0-32.0); Mean Corpuscular Hgb Conc. 32.5 g/dL (32.0-36.0); Mean Corpuscular Volume 76.1 fL (80.0-100.0); Neutrophils # (auto) 6.1 10 ^3/uL (1.6-8.6); Neutrophils % (auto) 65.8 % (37.0-80.0); Red Blood Cells 4.11 10^6/uL (4.0-5.20); Red Cell Distribution Width 15.8 % (11.8-14.3); White Blood Cell 9.3 10^3/uL (4.4-10.8)
[2023-01-28 06:17] LABS: Calcium 7.8 mg/dL (8.5-10.1); Chloride 107 mmol/L (98-107); Potassium 3.2 mmol/L (3.5-5.1); Sodium 139 mmol/L (136-145)
[2023-01-28 06:24] LABS: BUN/Creatinine Ratio 7.8 (10.0-20.0); Blood Urea Nitrogen 6 mg/dL (9-23); Glucose 98 mg/dL (74-106); Magnesium 1.9 mg/dL (1.6-2.6)
[2023-01-28 06:25] LABS: Carbon Dioxide 23.7 mmol/L (20-30)
[2023-01-28] MEDS: SODIUM CHLORIDE 0.9% 1,000 ML IV SCH ×2 (06:45→08:25)
[2023-01-28] MEDS: SUCRALFATE 1 GM/10 ML ORAL SUSP PO SCH ×4 (06:56→22:05)
[2023-01-28 07:23] LABS: Anion Gap 8 (5-15)
[2023-01-28 08:00] VITALS: RESP 16; O2SAT 96
[2023-01-28] MEDS: PANTOPRAZOLE 40 MG/10 ML VIAL INJ IV SCH (08:23)
[2023-01-28 09:24] VITALS: BP 97/63; PULSE 45; RESP 16; TEMP 98.3; O2SAT 96
[2023-01-28] MEDS ORDERED: POTASSIUM CHL 20MEQ/100ML 100 ML IV ONE (10:15)
[2023-01-28 13:24] VITALS: BP 94/58; PULSE 48; RESP 16; TEMP 98.3; O2SAT 95
[2023-01-28 16:59] VITALS: BP 112/70; PULSE 49; RESP 17; TEMP 98.7; O2SAT 97
[2023-01-28] MEDS ORDERED: DICYCLOMINE HCL 10 MG CAP PO ONE (21:15)
[2023-01-28 22:00] VITALS: BP 110/65; PULSE 54; RESP 18; TEMP 99; O2SAT 97
[2023-01-28] MEDS: ONDANSETRON HCL 4 MG/2 ML VIAL IV PRN (22:11)
[2023-01-29] MEDS: HYDROmorphone HCL 2 MG/ML VL/or syr IV PRN (00:30)
[2023-01-29] MEDS: PIPERACILLIN-TAZOB 3.375GM 100 ML IV SCH ×2 (03:26→17:56)
[2023-01-29 06:02] LABS: Chloride 107 mmol/L (98-107); Potassium 3.4 mmol/L (3.5-5.1); Sodium 138 mmol/L (136-145)
[2023-01-29 06:03] LABS: Anion Gap 6.2 (5-15); Carbon Dioxide 24.8 mmol/L (20-30)
[2023-01-29 06:04] LABS: Calcium 8.1 mg/dL (8.5-10.1)
[2023-01-29 06:09] LABS: Glucose 104 mg/dL (74-106)
[2023-01-29] MEDS: SUCRALFATE 1 GM/10 ML ORAL SUSP PO SCH ×4 (06:40→21:26)
[2023-01-29 06:56] LABS: BUN/Creatinine Ratio 6.3 (10.0-20.0); Blood Urea Nitrogen < 5 mg/dL (9-23)
[2023-01-29] MEDS: PANTOPRAZOLE 40 MG/10 ML VIAL INJ IV SCH (09:47)
[2023-01-29 10:17] VITALS: BP 115/65; PULSE 39; RESP 16; TEMP 98; O2SAT 93
[2023-01-29] MEDS ORDERED: POTASSIUM CHL 20MEQ/100ML 100 ML IV ONE (11:00)
[2023-01-29] MEDS: ONDANSETRON HCL 4 MG/2 ML VIAL IV PRN (12:31)
[2023-01-29 13:56] VITALS: BP 138/78; PULSE 43; RESP 17; TEMP 98.3; O2SAT 98
[2023-01-29 16:23] LABS: Triglycerides 189 mg/dL (< 150)
[2023-01-29 16:24] LABS: LDL Cholesterol 44 mg/dL (< 100)
[2023-01-29 16:25] LABS: HDL Cholesterol 35 mg/dL (40-59)
[2023-01-29 16:26] LABS: Cholesterol 112 mg/dL (< 200)
[2023-01-29 16:40] VITALS: BP 114/71; PULSE 53; RESP 17; TEMP 98.4; O2SAT 97
[2023-01-29] MEDS: SODIUM CHLORIDE 0.9% 1,000 ML IV SCH (17:58)
[2023-01-29 20:00] VITALS: PULSE 54
[2023-01-29 23:32] VITALS: BP 118/62; PULSE 64; RESP 18; TEMP 98.6; O2SAT 95
[2023-01-30] VITALS (8 sets, daily range): BP systolic 106–131; BP diastolic 63–78; PULSE 45–65; RESP 15–18; TEMP 97.5–98.5; O2SAT 96–99
[2023-01-30] MEDS: PIPERACILLIN-TAZOB 3.375GM 100 ML IV SCH (02:34)
[2023-01-30] MEDS: SUCRALFATE 1 GM/10 ML ORAL SUSP PO SCH ×4 (06:17→22:06)
[2023-01-30 06:38] LABS: Chloride 103 mmol/L (98-107); Potassium 3.6 mmol/L (3.5-5.1); Sodium 137 mmol/L (136-145)
[2023-01-30 06:39] LABS: Anion Gap 11.2 (5-15); Carbon Dioxide 22.8 mmol/L (20-30)
[2023-01-30 06:44] LABS: BUN/Creatinine Ratio 7.1 (10.0-20.0); Blood Urea Nitrogen 6 mg/dL (9-23); Glucose 256 mg/dL (74-106)
[2023-01-30 06:45] LABS: CRP High Sensitivity 0.59 mg/dL (<1.0); Magnesium 1.9 mg/dL (1.6-2.6)
[2023-01-30 06:47] LABS: % Iron Saturation 6.4 % (15-50)
[2023-01-30 07:26] LABS: Erythrocyte Sedimentation Rate 13 mm/hr (0-20)
[2023-01-30] MEDS: SODIUM CHLORIDE 0.9% 1,000 ML IV SCH (08:15)
[2023-01-30] MEDS ORDERED: FLUMAZENIL 0.1 MG/ML INJ 10ML MDV IV ONE (08:33)
[2023-01-30] MEDS ORDERED: SODIUM CHLORIDE LOCK 10 ML ONE (08:33)
[2023-01-30] MEDS ORDERED: NALOXONE HCL 0.4 MG/ML VIAL ONE (08:33)
[2023-01-30] MEDS ORDERED: diphenhdrAMINE HCL 50 MG/1 ML VL ONE (08:34)
[2023-01-30] MEDS ORDERED: LIDOCAINE VISCOUS 2% 15ML UD ONE (08:34)
[2023-01-30] MEDS ORDERED: fentaNYL CITRATE 100 MCG/2 ML VL ONE (08:34)
[2023-01-30] MEDS ORDERED: MIDAZOLAM HCL 5 MG/ML-1ML VIAL ONE (08:34)
[2023-01-30] MEDS: PANTOPRAZOLE 40 MG/10 ML VIAL INJ IV SCH (09:46)
[2023-01-31] VITALS (11 sets, daily range): BP systolic 123–136; BP diastolic 60–81; PULSE 47–67; RESP 17–19; TEMP 97.8–98.7; O2SAT 92–96
[2023-01-31] MEDS: SODIUM CHLORIDE 0.9% 1,000 ML IV SCH ×2 (00:34→19:20)
[2023-01-31] MEDS: ACETAMINOPHEN 325 MG TAB PO PRN ×2 (00:34→07:58)
[2023-01-31] MEDS: SUCRALFATE 1 GM/10 ML ORAL SUSP PO SCH ×4 (05:30→22:00)
[2023-01-31 05:42] LABS: Chloride 106 mmol/L (98-107); Potassium 3.9 mmol/L (3.5-5.1); Sodium 138 mmol/L (136-145)
[2023-01-31 05:43] LABS: Anion Gap 7.4 (5-15); Calcium 8.5 mg/dL (8.5-10.1); Carbon Dioxide 24.6 mmol/L (20-30)
[2023-01-31 05:44] LABS: Basophils # (auto) 0.1 10 ^3/uL (0-0.2); Eosinophils # (auto) 0.3 10 ^3/uL (0-0.8); Lymphocytes # (auto) 2.3 10 ^3/uL (0.4-5.4); Monocytes # (auto) 0.7 10 ^3/uL (0-1.3); Nucleated Red Blood Cells % 0.1 %
[2023-01-31 05:47] LABS: INR 1.13 (0.9-1.15); Partial Thromboplastin Time 27.3 SEC (24.5-34.5); Prothrombin Time 11.8 sec (9.3-11.8)
[2023-01-31 05:48] LABS: BUN/Creatinine Ratio 9.5 (10.0-20.0); Basophils % (auto) 0.8 % (0.0-2.0); Blood Urea Nitrogen 8 mg/dL (9-23); Glucose 117 mg/dL (74-106); Hematocrit 33.9 % (36.0-46.0); Lymphocytes % (auto) 24.6 % (10.0-50.0); Mean Corpuscular Hemoglobin 24.9 pg (28.0-32.0); Mean Corpuscular Hgb Conc. 32.6 g/dL (32.0-36.0); Mean Corpuscular Volume 76.3 fL (80.0-100.0); Monocytes % (auto) 7.2 % (0.0-12.0); Neutrophils # (auto) 6.1 10 ^3/uL (1.6-8.6); Neutrophils % (auto) 64.4 % (37.0-80.0); Red Blood Cells 4.44 10^6/uL (4.0-5.20); Red Cell Distribution Width 15.7 % (11.8-14.3); White Blood Cell 9.5 10^3/uL (4.4-10.8)
[2023-01-31] MEDS: PANTOPRAZOLE 40 MG/10 ML VIAL INJ IV SCH (10:34)
[2023-01-31] MEDS ORDERED: fentaNYL CITRATE 100 MCG/2 ML VL ONE (16:09)
[2023-01-31] MEDS ORDERED: MEPERIDINE HCL (50 MG/ML) 1 ML VIAL ONE ×2 (16:09→17:45)
[2023-01-31] MEDS ORDERED: NEOSTIGMINE 1 MG/ML INJ (10mg/10ML VIAL) ONE (16:10)
[2023-01-31] MEDS ORDERED: GLYCOPYRROLATE 0.2 MG/ML 1ML VIAL ONE (16:10)
[2023-01-31] MEDS ORDERED: DexAMETHasone SOD PHOS 10MG/1ML VIAL INJ ONE (16:10)
[2023-01-31] MEDS ORDERED: SODIUM CHLORIDE LOCK 10 ML ONE (16:10)
[2023-01-31] MEDS ORDERED: ROCURONIUM 10MG/ML 10ML VIAL IV ONE (16:10)
[2023-01-31] MEDS ORDERED: PROPOFOL 10 MG/ML 20 ML IV ONE (16:10)
[2023-01-31] MEDS ORDERED: MIDAZOLAM HCL 2MG/2ML 2ml VIAL (1mg/ml) ONE (16:10)
[2023-01-31] MEDS ORDERED: ceFAZolin 1GM/50ML 50 ML IV ONE (16:24)
[2023-01-31] MEDS ORDERED: METOCLOPRAMIDE HCL 5MG/ml INJ 2ml VIAL IV PRN (16:30)
[2023-01-31] MEDS ORDERED: MORPHINE SULFATE INJ 2 MG/ml SYRG IV PRN (16:30)
[2023-01-31] MEDS ORDERED: HYDROmorphone HCL 2 MG/ML VL/or syr IV PRN ×2 (16:30)
[2023-01-31] MEDS ORDERED: ceFAZolin 1GM VL ONE (16:55)
[2023-01-31] MEDS ORDERED: SUGAMMADEX 200mg/2ml Vial (100MG/ML) IV ONE (17:43)
[2023-01-31] MEDS ORDERED: HYDROmorphone HCL 2 MG/ML VL/or syr IV ONE (18:08)
[2023-01-31] MEDS: HYDROmorphone HCL 2 MG/ML VL/or syr IV PRN (19:22)
[2023-01-31] MEDS ORDERED: HYDROcodone-ACET 5/325MG TAB PO PRN (21:45)
[2023-01-31] MEDS: ONDANSETRON HCL 4 MG/2 ML VIAL IV PRN (22:06)
[2023-02-01] VITALS (9 sets, daily range): BP systolic 120–137; BP diastolic 66–86; PULSE 52–76; RESP 16–19; TEMP 97.8–98.7; O2SAT 93–98
[2023-02-01] MEDS: HYDROmorphone HCL 2 MG/ML VL/or syr IV PRN ×4 (00:30→22:41)
[2023-02-01 06:25] LABS: Anion Gap 7.7 (5-15); Calcium 8.8 mg/dL (8.7-10.4); Carbon Dioxide 25.3 mmol/L (20-30); Chloride 102 mmol/L (98-107); Potassium 4.1 mmol/L (3.5-5.1); Sodium 135 mmol/L (136-145)
[2023-02-01 06:31] LABS: BUN/Creatinine Ratio 9.1 (10.0-20.0); Blood Urea Nitrogen 7 mg/dL (9-23); Glucose 120 mg/dL (74-106)
[2023-02-01] MEDS: SUCRALFATE 1 GM/10 ML ORAL SUSP PO SCH ×4 (06:57→21:23)
[2023-02-01 07:08] LABS: Basophils # (auto) 0.1 10 ^3/uL (0-0.2); Basophils % (auto) 0.4 % (0.0-2.0); Hemoglobin 11.7 g/dL (12.2-16.2); Lymphocytes # (auto) 1.5 10 ^3/uL (0.4-5.4); Mean Corpuscular Hemoglobin 24.7 pg (28.0-32.0); White Blood Cell 13.2 10^3/uL (4.4-10.8)
[2023-02-01 07:11] LABS: Eosinophils # (auto) 0 10 ^3/uL (0-0.8); Eosinophils % (auto) 0.4 % (0.0-7.0); Hematocrit 36.3 % (36.0-46.0); Lymphocytes % (auto) 11.5 % (10.0-50.0); Mean Corpuscular Hgb Conc. 32.2 g/dL (32.0-36.0); Mean Corpuscular Volume 76.7 fL (80.0-100.0); Monocytes # (auto) 0.4 10 ^3/uL (0-1.3); Monocytes % (auto) 3.2 % (0.0-12.0); Neutrophils # (auto) 11.1 10 ^3/uL (1.6-8.6); Neutrophils % (auto) 84.5 % (37.0-80.0); Nucleated Red Blood Cells % 0.1 %; Red Blood Cells 4.74 10^6/uL (4.0-5.20); Red Cell Distribution Width 15.9 % (11.8-14.3)
[2023-02-01 09:19] LABS: Hepatitis B Surface Antibody Positive (Negative)
[2023-02-01 09:31] LABS: Hepatitis B Surface Antigen Negative (Negative)
[2023-02-01] MEDS: PANTOPRAZOLE 40 MG/10 ML VIAL INJ IV SCH (09:34)
[2023-02-01] MEDS ORDERED: KETOROLAC TROMETH 30 MG/ML 1ML VIAL IV PRN (09:45)
[2023-02-01] MEDS ORDERED: KETOROLAC TROMETH 30 MG/ML 1ML VIAL IV ONE (09:45)
[2023-02-01 09:52] LABS: Hepatitis C Antibody Negative (Negative)
[2023-02-01 09:58] LABS: Hepatitis A Total Antibody Positive (Negative)
[2023-02-01] MEDS: SODIUM CHLORIDE 0.9% 1,000 ML IV SCH (11:40)
[2023-02-01] MEDS: ONDANSETRON HCL 4 MG/2 ML VIAL IV PRN (15:01)
[2023-02-01] MEDS: DOCUSATE SOD 100 MG CAP PO PRN (18:30)
[2023-02-01 19:59] LABS: Hepatitis B Core Total AB Negative (Negative)
[2023-02-02] MEDS: HYDROmorphone HCL 2 MG/ML VL/or syr IV PRN (03:15)
[2023-02-02] MEDS: ONDANSETRON HCL 4 MG/2 ML VIAL IV PRN ×2 (03:15→06:54)
[2023-02-02] MEDS: SODIUM CHLORIDE 0.9% 1,000 ML IV SCH (03:25)
[2023-02-02 05:00] VITALS: BP 121/76; PULSE 58; RESP 18; TEMP 98.3; O2SAT 95
[2023-02-02 05:28] LABS: Calcium 8.6 mg/dL (8.7-10.4); Chloride 103 mmol/L (98-107); Potassium 3.9 mmol/L (3.5-5.1); Sodium 135 mmol/L (136-145)
[2023-02-02 05:29] LABS: Anion Gap 6.2 (5-15); Carbon Dioxide 25.8 mmol/L (20-30)
[2023-02-02 05:34] LABS: BUN/Creatinine Ratio 9.1 (10.0-20.0); Blood Urea Nitrogen 7 mg/dL (9-23); Glucose 108 mg/dL (74-106)
[2023-02-02] MEDS: DOCUSATE SOD 100 MG CAP PO PRN (05:38)
[2023-02-02] MEDS: SUCRALFATE 1 GM/10 ML ORAL SUSP PO SCH ×3 (06:13→17:00)
[2023-02-02 06:15] LABS: Eosinophils # (auto) 0.5 10 ^3/uL (0-0.8); Hemoglobin 12.6 g/dL (12.2-16.2); Lymphocytes # (auto) 1.6 10 ^3/uL (0.4-5.4); Lymphocytes % (auto) 13.9 % (10.0-50.0); Mean Corpuscular Hemoglobin 24.5 pg (28.0-32.0)
[2023-02-02 06:18] LABS: Basophils # (auto) 0.1 10 ^3/uL (0-0.2); Basophils % (auto) 0.6 % (0.0-2.0); Eosinophils % (auto) 4.4 % (0.0-7.0); Hematocrit 39.2 % (36.0-46.0); Mean Corpuscular Hgb Conc. 32.2 g/dL (32.0-36.0); Mean Corpuscular Volume 76.1 fL (80.0-100.0); Monocytes # (auto) 0.5 10 ^3/uL (0-1.3); Monocytes % (auto) 4.8 % (0.0-12.0); Neutrophils # (auto) 8.8 10 ^3/uL (1.6-8.6); Neutrophils % (auto) 76.3 % (37.0-80.0); Red Blood Cells 5.15 10^6/uL (4.0-5.20); White Blood Cell 11.5 10^3/uL (4.4-10.8)
[2023-02-02 07:30] VITALS: PULSE 54
[2023-02-02 07:45] VITALS: BP 121/75; PULSE 54; RESP 20; TEMP 98; O2SAT 96
[2023-02-02 09:00] VITALS: BP 121/75; PULSE 52; RESP 20; TEMP 98; O2SAT 96
[2023-02-02] MEDS ORDERED: TRAM50TA2 PO (09:23)
[2023-02-02] MEDS ORDERED: DOCU-94 PO (09:23)
[2023-02-02] MEDS ORDERED: CEPH500T PO (09:23)
[2023-02-02] MEDS ORDERED: PANT40TA2 PO (09:23)
[2023-02-02] MEDS: PANTOPRAZOLE 40 MG/10 ML VIAL INJ IV SCH (09:39)
[2023-02-02 13:00] VITALS: BP 116/73; PULSE 60; RESP 19; TEMP 98.5; O2SAT 94
[2023-02-02 13:40] VITALS: BP 116/73; PULSE 60; RESP 19; TEMP 98.5; O2SAT 94
[2023-02-02] MEDS ORDERED: SUCCINYLCHOLINE CHLORIDE 20 MG/ML 10ML VIAL IV ONE (18:21)
== END 2023-02-02 18:22 | disposition home or self-care (01) | DRG 855 ==
LOC: EDBD 20:43 → ER 20:46 → EEVIPCON 01-26 04:50 → OVERFLOW 01-26 04:50 → CENTRAL 01-26 08:27 → TELE-CENTR 01-30 07:08
PROVIDERS: ADMIT Nurse Practitioner Family; ATTEND Internal Medicine
PROC: 0WQF3ZZ Repair Abdominal Wall, Percutaneous Approach (ICD-10-PCS; principal; 2023-01-31 16:55)
DX: A41.9 Sepsis, unspecified organism (principal); K52.9 Noninfective gastroenteritis and colitis, unspecified; E86.0 Dehydration; E87.6 Hypokalemia; K21.9 Gastro-esophageal reflux disease without esophagitis; K43.2 Incisional hernia without obstruction or gangrene; I11.0 Hypertensive heart disease with heart failure; I50.9 Heart failure, unspecified; R00.1 Bradycardia, unspecified; R73.9 Hyperglycemia, unspecified; E66.9 Obesity, unspecified; J45.909 Unspecified asthma, uncomplicated; G47.30 Sleep apnea, unspecified; Z68.35 Body mass index [BMI] 35.0-35.9, adult; Z79.899 Other long term (current) drug therapy; Z82.49 Family history of ischemic heart disease and other diseases of the circulatory system; Z88.3 Allergy status to other anti-infective agents; Z83.3 Family history of diabetes mellitus; Z98.51 Tubal ligation status; Z90.49 Acquired absence of other specified parts of digestive tract; Z88.2 Allergy status to sulfonamides
CPT/HCPCS: 36415; 71045; 74177; 80048; 80053; 80061; 81001; 81025; 82270; 83036; 83540; 83550; 83605; 83690; 83735; 83880; 84443; 84484; 85007; 85025; 85027; 85048; 85610; 85652; 85730; 86141; 86677; 86704; 86706; 86708; 86803; 87040; 87045; 87340; 87427; 88302; 93306; C9113; G0378; J0330; J0690; J1100; J1885; J2250; J2405; J2543; J2704; J3480; Q0162

== ENCOUNTER → 2023-03-27 | Outpatient (CLI) | payer BC, MEDICAID ==
[~2023-03-27] MED LIST changes: +ALBUTEROL MEDNEB 2.5 mg/3ml NEB ONE; +CEPH500T PO; +DOCU-94 PO; +TRAM50TA2 PO
== END | disposition home or self-care (01) ==
LOC: EEVIPCON → RT 09:13
PROVIDERS: ATTEND Internal Medicine Pulmonary Disease
DX: J30.2 Other seasonal allergic rhinitis (principal)
CPT/HCPCS: 94060; 94727; 94729

== ENCOUNTER → 2023-07-04 | Outpatient (CLI) | payer BC, MEDICAID ==
[~2023-07-04] MED LIST changes: -ALBUTEROL MEDNEB 2.5 mg/3ml NEB ONE
[2023-07-04 09:45] LABS: Basophils # (auto) 0.1 10 ^3/uL (0-0.2); Basophils % (auto) 0.8 % (0.0-2.0); Mean Corpuscular Hemoglobin 24.9 pg (28.0-32.0); Monocytes # (auto) 0.5 10 ^3/uL (0-1.3)
[2023-07-04 09:46] LABS: Eosinophils # (auto) 0.1 10 ^3/uL (0-0.8); Eosinophils % (auto) 1.1 % (0.0-7.0); Hematocrit 38.6 % (36.0-46.0); Hemoglobin 12.3 g/dL (12.2-16.2); Lymphocytes # (auto) 2.4 10 ^3/uL (0.4-5.4); Lymphocytes % (auto) 18.9 % (10.0-50.0); Mean Corpuscular Hgb Conc. 31.9 g/dL (32.0-36.0); Mean Corpuscular Volume 77.9 fL (80.0-100.0); Neutrophils # (auto) 9.3 10 ^3/uL (1.6-8.6); Neutrophils % (auto) 75.2 % (37.0-80.0); Red Blood Cells 4.95 10^6/uL (4.0-5.20); White Blood Cell 12.4 10^3/uL (4.4-10.8)
[2023-07-04 10:29] LABS: Alanine Aminotransferase 14 U/L (7-40); Albumin 4.4 g/dL (3.2-4.8); Alkaline Phosphatase 78 U/L (46-116); Amylase 29 U/L (30-118); Anion Gap 9 (5-15); Aspartate Aminotransferase 16 U/L (13-40); BUN/Creatinine Ratio 13.6 (10.0-20.0); Blood Urea Nitrogen 11 mg/dL (9-23); Calcium 9.4 mg/dL (8.5-10.1); Carbon Dioxide 23 mmol/L (20-30); Chloride 106 mmol/L (98-107); Glucose 103 mg/dL (74-106); Sodium 138 mmol/L (136-145)
[2023-07-04 10:30] LABS: Bilirubin, Total 0.7 mg/dL (0.2-1.0); Total Protein 7.1 g/dL (5.7-8.2)
[2023-07-04 11:13] LABS: Erythrocyte Sedimentation Rate 12 mm/hr (0-20)
[2023-07-05 08:07] LABS: Carbohydrate Antigen 19-9 6 U/mL (0-35); Immunoglobulin A 270 mg/dL (87-352); Immunoglobulin G, Serum 1077 mg/dL (586-1602)
== END | disposition home or self-care (01) ==
LOC: LAB 09:13
PROVIDERS: ATTEND Internal Medicine
DX: K21.9 Gastro-esophageal reflux disease without esophagitis (principal); I10 Essential (primary) hypertension
CPT/HCPCS: 36415; 80053; 82150; 82784; 83615; 85025; 85652; 86301; 87177

== ENCOUNTER → 2024-02-18 | Outpatient (CLI) | payer BC, MEDICAID ==
[~2024-02-18] MED LIST changes: -CEFU500T43 PO; +LOSA-534 PO; -LOSA50TA46 PO; +MONT5CHW12 PO; +OMEP20TA PO; +ONDA-188 PO; -POTA1TAB61 PO; +SUCR1TAB31 PO
[2024-02-18 15:57] LABS: Basophils # (auto) 0.1 10 ^3/uL (0-0.2); Eosinophils # (auto) 0.3 10 ^3/uL (0-0.8); Hemoglobin 13.5 g/dL (12.2-16.2); Monocytes # (auto) 0.6 10 ^3/uL (0-1.3)
[2024-02-18 16:03] LABS: Hematocrit 39.5 % (36.0-46.0); Mean Corpuscular Hgb Conc. 34.2 g/dL (32.0-36.0); Red Cell Distribution Width 15.9 % (11.8-14.3)
[2024-02-18 16:05] LABS: Basophils % (auto) 1.2 % (0.0-2.0); Eosinophils % (auto) 2.8 % (0.0-7.0); Lymphocytes # (auto) 2.9 10 ^3/uL (0.4-5.4); Lymphocytes % (auto) 29.9 % (10.0-50.0); Mean Corpuscular Hemoglobin 26.6 pg (28.0-32.0); Mean Corpuscular Volume 77.7 fL (80.0-100.0); Monocytes % (auto) 6.1 % (0.0-12.0); Neutrophils # (auto) 5.7 10 ^3/uL (1.6-8.6); Platelet Count (auto) 271 10^3/uL (140-450); Red Blood Cells 5.08 10^6/uL (4.0-5.20); White Blood Cell 9.6 10^3/uL (4.4-10.8)
== END | disposition home or self-care (01) ==
LOC: LAB 15:40
PROVIDERS: ATTEND Internal Medicine
DX: D69.6 Thrombocytopenia, unspecified (principal); Z00.00 Encounter for general adult medical examination without abnormal findings
CPT/HCPCS: 36415; 85025

== ENCOUNTER 2024-06-09 16:20 | Emergency (ER) | payer BC, MEDICAID ==
[~2024-06-09] VITALS: Ht 165.1 cm; Wt 87.0 kg
[2024-06-09 16:25] VITALS: BP 148/80
[2024-06-09] MEDS: methylPREDNISolone SOD SUCC 125 MG/2 ML VL IV ONE (16:37)
[2024-06-09] MEDS: methylPREDNISolone SOD SUCC 125 MG/2 ML VL ONE (16:37)
--- NOTE | 2024-06-09 16:43 | ED.PDOC ---
SOB-HPI HPI Comments 49 y.o female with PMHx of asthma, GERD, CHF, HTN, presents to the ED for a chief complaint of SOB associated with a cough and right sided rib pain that started about 1 hour ago while at work. Patient reports symptoms came on set spontaneously and progressively worsened. Patient denies any chest pain, fever, chills, nausea, vomiting, leg swelling, or any other pain. 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 Family History Family History: Reviewed,noncontributory to illness, Family hx of DM, Family hx of heart maribel Social History Smoker: Non-Smoker Alcohol: Occasionally Drugs: Denies Drug Use Lives In: Home Constitutional: denies: chills, diaphoresis, fatigue, fever, malaise, sweats, weakness, others EENTM: denies: blurred vision, double vision, ear bleeding, ear discharge, ear drainage, ear pain, ear ringing, eye pain, eye redness, hearing loss, mouth pain, mouth swelling, nasal discharge, nose bleeding, nose congestion, nose pain, photophobia, tearing, throat pain, throat swelling, voice changes, others Respiratory: reports: cough, SOB at rest, shortness of breath, SOB with excertion; denies: hemoptysis, orthopnea, stridor, wheezing, others Cardiovascular: denies: chest pain, dizzy spells, diaphoresis, Dyspnea on exertion, edema, irregular heart beat, left arm pain, lightheadedness, palpitations, PND, syncope, others Gastrointestinal: denies: abdomen distended, abdominal pain, blood streaked bowels, constipated, diarrhea, dysphagia, difficulty swallowing, hematemesis, melena, nausea, poor appetite, poor fluid intake, rectal bleeding, rectal pain, vomiting, others Genitourinary: denies: abnormal vagina bleeding, burning, dyspareunia, dysuria, flank pain, frequency, hematuria, incontinence, pain, , vagina discharge, urgency, others Neurological: denies: dizziness, fainting, headache, left sided numbness, left sided weakness, numbness, paresthesia, pre-existing deficit, right sided numbness, right sided weakness, seizure, speech problems, tingling, tremors, we akness, others Musculoskeletal: reports: others (right rib pain ); denies: back pain, gout, joint pain, joint swelling, muscle pain, muscle stiffness, neck pain Integumetry: denies: bruises, change in color, change in hair/nails, dryness, laceration, lesions, lumps, rash, wounds, others Allergic/Immunocompromised: denies: Difficulty Healing, Frequent Infections, Hives, Itching, others Hematologic/Lymphatic: denies: anemia, blood clots, easy bleeding, easy bruising, swollen glands, others Endocrine: denies: excessive hunger, excessive sweating, excessive thirst, excessive urination, flushing, intolerance to cold, intolerance to heat, unexplained weight gain, unexplained weight loss, others Psychiatric: denies: anxiety, bipolar disorder, depression, hopeless, panic disorder, schizophrenia, sleepless, suicidal, others All Other Systems: Reviewed and Negative Physical Exam General Appearance: Moderate Distress, Normal HEENT: Normal ENT Inspection, Pharynx Normal, TMs Normal Neck: Full Range of Motion, Non-Tender, Normal, Normal Inspection Respiratory: No Accessory Muscle Use, Respiratory Distress, Other (tightness ) Cardiovascular: No Edema, No JVD, No Murmur, No Gallop, Normal Peripheral Pulses, Regular Rate/Rhythm Breast Exam: Deferred Gastrointestinal: No Organomegaly, Non Tender, No Pulsatile Mass, Normal Bowel Sounds, Soft Genitalia: Deferred Pelvic: Deferred Rectal: Deferred Extremities: No calf tenderness, Normal capillary refill, Normal inspection, Normal range of motion, Non-tender, No pedal edema Musculoskeletal : Apperance: Normal Neurologic: Alert, 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 Was a procedure done?: No Differential Dx Differential Diagnosis: Asthma, Bronchitis, Hyperventilation, Pneumonia, Respiratory Distress, URI X-Ray, Labs, Meds, VS Vital Signs Date Time Temp Pulse Resp B/P (MAP) Pulse Ox O2 Delivery O2 Flow Rate FiO2 06/09/24 16:55 18 97 Room Air* 0 21 06/09/24 16:25 99.0 87 28 148/80 (102) 97 06/09/24 16:25 28 97 Room Air* 0 21 Lab Test 06/09/24 16:30 Range/Units White Blood Count 10.8 4.4-10.8 10^3/uL Red Blood Count 5.42 H 4.0-5.20 10^6/uL Hemoglobin 14.2 12.2-16.2 g/dL Hematocrit 42.9 36.0-46.0 % Mean Corpuscular Volume 79.2 L 80.0-100.0 fL Mean Corpuscular Hemoglobin 26.2 L 28.0-32.0 pg Mean Corpuscular Hemoglobin Concent 33.1 32.0-36.0 g/dL Red Cell Distribution Width 14.3 11.8-14.3 % Platelet Count 342 140-450 10^3/uL Mean Platelet Volume 8.6 6.9-10.8 fL Neutrophils (%) (Auto) 67.5 37.0-80.0 % Lymphocytes (%) (Auto) 26.1 10.0-50.0 % Monocytes (%) (Auto) 3.5 0.0-12.0 % Eosinophils (%) (Auto) 2.1 0.0-7.0 % Basophils (%) (Auto) 0.8 0.0-2.0 % Neutrophils # (Auto) 7.3 1.6-8.6 10 ^3/uL Lymphocytes # (Auto) 2.8 0.4-5.4 10 ^3/uL Monocytes # (Auto) 0.4 0-1.3 10 ^3/uL Eosinophils # (Auto) 0.2 0-0.8 10 ^3/uL Basophils # (Auto) 0.1 0-0.2 10 ^3/uL Nucleated Red Blood Cells 0.3 % Sodium Level 140 136-145 mmol/L Potassium Level 3.5 3.5-5.1 mmol/L Chloride Level 104 98-107 mmol/L Carbon Dioxide Level 27 20-31 mmol/L Anion Gap 9 5-15 Blood Urea Nitrogen 12 9-23 mg/dL Creatinine 0.92 0.550-1.02 mg/dL Glomerular Filtration Rate Calc 76 >90 mL/min BUN/Creatinine Ratio 13.0 10.0-20.0 Serum Glucose 131 H 74-106 mg/dL Calcium Level 9.7 8.7-10.4 mg/dL Total Bilirubin 0.3 0.2-1.0 mg/dL Aspartate Amino Transferase (AST) 9 L 13-40 U/L Alanine Aminotransferase (ALT) 16 7-40 U/L Alkaline Phosphatase 99 46-116 U/L Total Protein 7.3 5.7-8.2 g/dL Albumin 4.5 3.2-4.8 g/dL Current Medications Medications (Trade) Dose Ordered Sig/Zeus Route Start Time Stop Time Status Last Admin Methylprednisolone Sodium Succinate (Solu Medrol) 125 mg ONCE ONCE IV 06/09/24 16:45 06/09/24 16:46 DC 06/09/24 16:37 Albuterol (Ventolin Medneb) 5 mg ONCE ONCE NEB 06/09/24 16:45 06/09/24 16:46 DC 06/09/24 16:54 Ipratropium [place] (Atrovent Medneb) 0.5 mg ONCE ONCE NEB 06/09/24 16:45 06/09/24 16:46 DC 06/09/24 16:55 X-Ray, Labs, Meds, VS Comment Imaging: X-rays and CT scans were reviewed and interpreted by this provider, imaging shows no fractures and no pathological disease. Pending radiology review. Laboratory: Labs reviewed and interpreted by this provider. No significant abnormalities noted. Patient has prior medical visits reviewed. Med reconciliation performed Vital signs reviewed Time of 1ST Reevaluation: 16:40 Reevaluation 1ST: Unchanged Patient Education/Counseling: Diagnosis, Treatment, Prognosis, Need For Follow Up (Patient advised to follow-up in the emergency room in the next 24 to 48 hours if symptoms do not improve. Advised follow-up with PCP in the next 3 to 5 days. Patient verbalized understanding. ) Family Education/Counseling: No Family Present Departure 1 Departure Time of Disposition: 18:19 Impression: Primary Impression: Acute asthma Disposition: HOME / SELF CARE / HOMELESS Condition: Fair e-Prescriptions Prednisone (Prednisone) 20 Mg Tab 20 MG PO DAILY for 5 Days, #5 MG Prov: RIA PRICE 06/09/24 Discharged With: Self Critical Care Note Critical Care Time?: No Stability Stability form required: No I personally scribed for RIA PRICE ([facility]) on 06/09/24 at 16:43. Electronically submitted by Katarina Brownlee ([facility]). RIA PRICE Jun 09, 2024 16:43
[2024-06-09] MEDS: ALBUTEROL SULF 2.5 MG/0.5ML(0.5%) NEB SOLN NEB ONE (16:54)
[2024-06-09] MEDS: IPRATROPIUM BROM 0.5 MG/2.5ML INH SOL NEB ONE (16:55)
--- NOTE | 2024-06-09 16:59 | DVH ---
EXAM: XY CHEST PORTABLE TECHNIQUE: Single frontal chest radiograph CLINICAL HISTORY: sob COMPARISON: XY CHEST PORTABLE on DOS: 02/11/24, XY CHEST PORTABLE on DOS: 01/26/23, XY CHEST PORTABLE on DOS: 10/27/22 Findings/Impression: Frontal chest radiograph demonstrates no acute osseous or superficial soft tissue abnormalities. The trachea is midline. The cardiac silhouette and mediastinum are within normal limits. No pneumothorax, pleural effusions, or consolidations.
[2024-06-09 17:02] LABS: Basophils # (auto) 0.1 10 ^3/uL (0-0.2); Lymphocytes # (auto) 2.8 10 ^3/uL (0.4-5.4); Monocytes # (auto) 0.4 10 ^3/uL (0-1.3); Nucleated Red Blood Cells % 0.3 %; White Blood Cell 10.8 10^3/uL (4.4-10.8)
[2024-06-09 17:04] LABS: Basophils % (auto) 0.8 % (0.0-2.0); Eosinophils # (auto) 0.2 10 ^3/uL (0-0.8); Eosinophils % (auto) 2.1 % (0.0-7.0); Hematocrit 42.9 % (36.0-46.0); Hemoglobin 14.2 g/dL (12.2-16.2); Lymphocytes % (auto) 26.1 % (10.0-50.0); Mean Corpuscular Hemoglobin 26.2 pg (28.0-32.0); Mean Corpuscular Hgb Conc. 33.1 g/dL (32.0-36.0); Mean Corpuscular Volume 79.2 fL (80.0-100.0); Monocytes % (auto) 3.5 % (0.0-12.0); Neutrophils # (auto) 7.3 10 ^3/uL (1.6-8.6); Neutrophils % (auto) 67.5 % (37.0-80.0); Platelet Count (auto) 342 10^3/uL (140-450); Red Blood Cells 5.42 10^6/uL (4.0-5.20); Red Cell Distribution Width 14.3 % (11.8-14.3)
[2024-06-09 17:30] VITALS: PULSE 85; RESP 19; O2SAT 94
[2024-06-09 17:31] LABS: Alanine Aminotransferase 16 U/L (7-40); Albumin 4.5 g/dL (3.2-4.8); Alkaline Phosphatase 99 U/L (46-116); Anion Gap 9 (5-15); Blood Urea Nitrogen 12 mg/dL (9-23); Calcium 9.7 mg/dL (8.7-10.4); Carbon Dioxide 27 mmol/L (20-31); Chloride 104 mmol/L (98-107); Sodium 140 mmol/L (136-145)
[2024-06-09 17:32] LABS: Bilirubin, Total 0.3 mg/dL (0.2-1.0); Total Protein 7.3 g/dL (5.7-8.2)
[2024-06-09 17:35] LABS: Aspartate Aminotransferase 9 U/L (13-40); Glucose 131 mg/dL (74-106); Potassium 3.5 mmol/L (3.5-5.1)
[2024-06-09] MEDS ORDERED: PRED20TA2 PO (18:21)
== END 2024-06-09 18:29 | disposition home or self-care (01) ==
LOC: ER 16:27
DX: J45.909 Unspecified asthma, uncomplicated (principal); K21.9 Gastro-esophageal reflux disease without esophagitis; I11.0 Hypertensive heart disease with heart failure; I50.89 Other heart failure; Z90.49 Acquired absence of other specified parts of digestive tract; Z90.89 Acquired absence of other organs; Z98.890 Other specified postprocedural states
CPT/HCPCS: 36415; 71045; 80053; 85025; 94640; 96374; 99284; J2919

== ENCOUNTER → 2024-10-01 | Outpatient (CLI) | payer BC, MEDICAID ==
[~2024-10-01] MED LIST changes: +PRED20TA2 PO
[2024-10-01 10:06] LABS: Basophils # (auto) 0.1 10 ^3/uL (0-0.2); Basophils % (auto) 1.5 % (0.0-2.0); Eosinophils # (auto) 0.2 10 ^3/uL (0-0.8); Eosinophils % (auto) 2.1 % (0.0-7.0); Hematocrit 43.9 % (36.0-46.0); Hemoglobin 14.9 g/dL (12.2-16.2); Lymphocytes # (auto) 2.3 10 ^3/uL (0.4-5.4); Mean Corpuscular Hgb Conc. 33.9 g/dL (32.0-36.0); Mean Corpuscular Volume 79.6 fL (80.0-100.0); Monocytes # (auto) 0.5 10 ^3/uL (0-1.3); Monocytes % (auto) 5.7 % (0.0-12.0); Neutrophils # (auto) 5.1 10 ^3/uL (1.6-8.6); Neutrophils % (auto) 62.7 % (37.0-80.0); Platelet Count (auto) 356 10^3/uL (140-450); Red Blood Cells 5.52 10^6/uL (4.0-5.20); Red Cell Distribution Width 14.3 % (11.8-14.3); White Blood Cell 8.2 10^3/uL (4.4-10.8)
[2024-10-01 10:31] LABS: Follicle Stimulating Hormone 3.6 IU/L (SEE BELOW)
[2024-10-01 10:32] LABS: Leuteinizing Hormone 1.7 IU/L
[2024-10-01 10:33] LABS: Alanine Aminotransferase 11 U/L (7-40); Albumin 4.7 g/dL (3.2-4.8); Alkaline Phosphatase 76 U/L (46-116); Anion Gap 10 (5-15); BUN/Creatinine Ratio 16.3 (10.0-20.0); Blood Urea Nitrogen 14 mg/dL (9-23); Calcium 10.2 mg/dL (8.7-10.4); Carbon Dioxide 25 mmol/L (20-31); Chloride 105 mmol/L (98-107); Cholesterol 189 mg/dL (< 200); Free T4 (Free Thyroxine) 1.13 ng/dL (0.89-1.76); Glucose 99 mg/dL (74-106); HDL Cholesterol 53 mg/dL (40-59); Potassium 3.9 mmol/L (3.5-5.1); Sodium 140 mmol/L (136-145); Total Protein 7.4 g/dL (5.7-8.2)
[2024-10-01 10:34] LABS: Bilirubin, Total 0.9 mg/dL (0.2-1.0)
[2024-10-01 10:38] LABS: Aspartate Aminotransferase 10 U/L (13-40); LDL Cholesterol 105 mg/dL (< 100); Triglycerides 155 mg/dL (< 150)
[2024-10-01 10:39] LABS: Erythrocyte Sedimentation Rate 7 mm/hr (0-20)
[2024-10-02 13:37] LABS: Urine Bacteria None Seen /hpf (None Seen)
[2024-10-02 13:51] LABS: Urine Blood Negative /uL (Negative); Urine Clarity Clear (Clear); Urine Color Light-Yellow (Yellow); Urine Protein, UAD Negative (Negative); Urine Specific Gravity 1.016 (1.001-1.035); Urine Squamous Epithelial Cell None Seen /hpf (<5); Urine Urobilinogen Normal (Negative); Urine WBC 1 /HPF (0-5); Urine pH 5.5 (5.0-9.0)
[2024-10-03 02:06] LABS: Estradiol 58.9 pg/mL (.)
== END | disposition home or self-care (01) ==
LOC: LAB 09:37
PROVIDERS: ATTEND Internal Medicine
DX: Z01.419 Encounter for gynecological examination (general) (routine) without abnormal findings (principal); I10 Essential (primary) hypertension; E55.9 Vitamin D deficiency, unspecified
CPT/HCPCS: 36415; 80053; 80061; 81001; 82306; 82670; 83001; 83002; 83735; 84439; 84443; 85025; 85652

== ENCOUNTER 2024-11-11 08:13 | Outpatient (CLI) | payer BC, MEDICAID ==
[2024-11-13 07:07] LABS: Albumin 3.7 g/dL (2.9-4.4); Alpha-1-Globulin 0.2 g/dL (0.0-0.4); Alpha-2-Globulin 0.7 g/dL (0.4-1.0); Protein Total Serum 6.7 g/dL (6.0-8.5)
== END 2024-11-11 17:00 | disposition home or self-care (01) ==
LOC: LAB 08:13
PROVIDERS: ATTEND Internal Medicine
DX: G60.9 Hereditary and idiopathic neuropathy, unspecified (principal); Z79.899 Other long term (current) drug therapy
CPT/HCPCS: 36415; 82607; 83036; 84155; 84165

== ENCOUNTER → 2025-03-18 | Outpatient (CLI) | payer BC, MEDICAID ==
--- NOTE | 2025-03-18 14:08 | DVHSR ---
APPROVED REPORT EXAM: Two-dimensional and M-mode echocardiogram with Doppler and color Doppler. DIMENSIONS LVDd4.5 (3.8-5.7cm)LA (2D)4.0 (1.9-4.0cm)Aortic Root3.0 (2.0-3.7cm) LVDs2.9 (2.5-4.0cm)LA (MM) (1.9-4.0cm)Aortic Cusp Exc1.7 (1.5-2.0cm) EF (%) 60.0 (55-70%)Rt. Atrium4.0 (1.9-4.0cm)Asc. Aorta cm IVSd1.1 (0.7-1.1cm)RV (D) (1.8-2.4cm) PWd1.0 (0.7-1.1cm) Mitral Valve MitralMitral Stenosis E wave0.74m/sMV Mean GR.mmHg A wave0.90m/sMV Peak GR.mmHg E/A ratio0.82D MVAcm2 DECEL [id number] 1/2 [place] Aortic Valve Aortic ValveAortic Stenosis V10.94m/[place] Mean GR.5mmHg V21.55m/[place] Peak GR.10mmHg LVOT Diameter1.8 (1.8-2.4cm)Doppler AVA1.54cm2 Pulmonic Valve V20.93m/s Tricuspid Valve TR Velocity1.92m/s [id number] LEFT VENTRICLE The left ventricle is normal size. The left ventricle is normal in structure and function. The Ejection Fraction is within normal limits. RIGHT VENTRICLE The right ventricle is normal size. ATRIA The left atrial size is normal. The right atrium size is normal. The interatrial septum is intact with no evidence for an atrial septal defect. MITRAL VALVE The mitral valve is normal in structure. Mitral annular calcification is mild. Mitral regurgitation is trace. PULMONIC VALVE The pulmonic valve is not well visualized. TRICUSPID VALVE The tricuspid valve is grossly normal. There is trace tricuspid regurgitation. Right ventricular systolic pressure is less than 30 mmHg. AORTIC VALVE The aortic valve opens well. There is trace to mild aortic regurgitation. GREAT VESSELS The aortic root is normal size. PERICARDIAL EFFUSION There is no pericardial effusion. Conclusion EF >60% MILD AI MILD MAC
== END | disposition home or self-care (01) ==
LOC: Rad HDHVI 09:01
PROVIDERS: ATTEND Internal Medicine Cardiovascular Disease
DX: I08.0 Rheumatic disorders of both mitral and aortic valves (principal); R22.43 Localized swelling, mass and lump, lower limb, bilateral
CPT/HCPCS: 93306